=== PATIENT | male | born 1955 | race Caucasian/White ===

== ENCOUNTER → 2016-08-21 | Outpatient (CLI) | payer BC ==
[~2016-08-21] VITALS: Ht 170.2 cm; Wt 139.0 kg
[~2016-08-21] MED LIST: ANT25 PO; CMD5; HYDC25; HYDR25TA4 PO; LISI-461; LISI-725 PO; OMEP10CA2; OMEP20CA9 PO; POTA10CA28 PO; WARF2.5T8 PO; WARF5TAB7 PO
[2016-08-21 15:02] VITALS: BP 173/104; PULSE 99; Ht 170.2 cm; Wt 139.0 kg
== END | disposition home or self-care (01) ==
LOC: C.NEUR 13:49
PROVIDERS: ATTEND Internal Medicine Pulmonary Disease
DX: G47.30 Sleep apnea, unspecified (principal); G47.19 Other hypersomnia; I10 Essential (primary) hypertension; E66.01 Morbid (severe) obesity due to excess calories; J34.2 Deviated nasal septum

== ENCOUNTER → 2016-09-10 | Outpatient (CLI) | payer BC ==
[2016-09-10 18:29] LABS: INR 1.9 (0.9-1.1); PROTHROMBIN TIME (PATIENT) 20.6 SECONDS (9.0-12.0)
== END | disposition home or self-care (01) ==
LOC: C.LABSPEC 14:27
PROVIDERS: ATTEND Internal Medicine
DX: Z51.81 Encounter for therapeutic drug level monitoring (principal); Z79.01 Long term (current) use of anticoagulants; Z86.718 Personal history of other venous thrombosis and embolism

== ENCOUNTER → 2016-09-28 | Outpatient (CLI) | payer BC ==
[2016-09-28 14:03] LABS: INR 2.6 (0.9-1.1); PROTHROMBIN TIME (PATIENT) 28.8 SECONDS (9.0-12.0)
== END | disposition home or self-care (01) ==
LOC: C.LABSPEC 12:29
PROVIDERS: ATTEND Internal Medicine
DX: Z86.718 Personal history of other venous thrombosis and embolism (principal); Z79.01 Long term (current) use of anticoagulants

== ENCOUNTER → 2016-11-05 | Outpatient (CLI) | payer BC ==
[2016-11-05 13:39] LABS: INR 3.3 (0.9-1.1); PROTHROMBIN TIME (PATIENT) 36.7 SECONDS (9.0-12.0)
== END | disposition home or self-care (01) ==
LOC: C.LABSPEC 12:39
PROVIDERS: ATTEND Internal Medicine
DX: Z86.718 Personal history of other venous thrombosis and embolism (principal); Z79.01 Long term (current) use of anticoagulants

== ENCOUNTER → 2016-11-23 | Outpatient (CLI) | payer BC ==
[2016-11-23 13:01] LABS: INR 2.3 (0.9-1.1); PROTHROMBIN TIME (PATIENT) 25.9 SECONDS (9.0-12.0)
== END | disposition home or self-care (01) ==
LOC: C.LABSPEC 12:06
PROVIDERS: ATTEND Internal Medicine
DX: Z86.718 Personal history of other venous thrombosis and embolism (principal); Z79.01 Long term (current) use of anticoagulants

== ENCOUNTER → 2016-12-04 | Outpatient (CLI) | payer BC ==
[2016-12-04 12:34] LABS: BASO % 0.5 %; BASO ABS # 0.03 K/uL (0-0.2); COMPLETE YES; EOS % 1.3 %; HEMATOCRIT 48.6 % (42-52); IG% 0.2 %; LYMPH % 39.1 %; LYMPH ABS # 2.15 K/uL (1.2-3.4); MEAN CELL VOLUME 85.7 fL (80-100); MEAN CORPUSCULAR HEMOGLOBIN 30.5 pg (25-34); MEAN CORPUSCULAR HGB CONC 35.6 g/dl (32-36); MEAN PLATELET VOLUME 11.5 fL (7.4-10.4); MONO % 13.1 %; NEUT % 45.8 %; PLATELET COUNT 189 K/uL (130-400); RED BLOOD COUNT 5.67 M/uL (4.7-6.1)
[2016-12-04 13:03] LABS: ESTIMATED AVERAGE GLUCOSE 120 mg/dl; HA1C FLAG Normal (Normal)
[2016-12-04 13:06] LABS: ALT/SGPT 43 U/L (12-78); AST/SGOT 25 U/L (15-37); BLOOD UREA NITROGEN 12 mg/dl (7-18); BUN/CREATININE RATIO 13.4 (10-20); CARBON DIOXIDE 29 mmol/L (21-32); CHLORIDE 106 mmol/L (98-107); CREATININE 0.91 mg/dl (0.60-1.40); GLUCOSE 106 mg/dl (70-99); POTASSIUM 3.7 mmol/L (3.5-5.1); SODIUM 140 mmol/L (136-145); TRIGLYCERIDES 208 mg/dl (0-150); VERY LOW DENSITY LIPOPROT CALC 42 mg/dl
[2016-12-04 13:14] LABS: ALB/GLOB RATIO 1.2 (0.9-2); ALKALINE PHOSPHATASE 49 U/L (45-117); CHOLESTEROL 180 mg/dl (0-200); CHOLESTEROL/HDL RATIO 4.4; HDL CHOLESTEROL 41 mg/dl; THYROID STIMULATING HORMONE 0.899 uIu/ml (0.300-4.500)
== END | disposition home or self-care (01) ==
LOC: C.LABSPEC 12:10
PROVIDERS: ATTEND Internal Medicine
DX: Z00.00 Encounter for general adult medical examination without abnormal findings (principal); M25.50 Pain in unspecified joint; M79.1 Myalgia; I10 Essential (primary) hypertension; E78.5 Hyperlipidemia, unspecified; R53.83 Other fatigue; R73.9 Hyperglycemia, unspecified; Z80.42 Family history of malignant neoplasm of prostate

== ENCOUNTER → 2016-12-28 | Outpatient (CLI) | payer BC ==
[2016-12-28 13:15] LABS: INR 2.6 (0.9-1.1); PROTHROMBIN TIME (PATIENT) 29.5 SECONDS (9.0-12.0)
== END | disposition home or self-care (01) ==
LOC: C.LABSPEC 12:12
PROVIDERS: ATTEND Internal Medicine
DX: Z86.718 Personal history of other venous thrombosis and embolism (principal); Z79.01 Long term (current) use of anticoagulants

== ENCOUNTER → 2017-02-05 | Day surgery (SDC) | payer BC ==
[2017-01-28 15:19] VITALS: BMI 45.0
[~2017-02-05] VITALS: Ht 170.2 cm; Wt 131.8 kg
[~2017-02-05] MED LIST changes: -ANT25 PO; -CMD5; -HYDC25; -LISI-461; -OMEP10CA2
[2017-02-05 13:43] VITALS: Ht 170.2 cm; Wt 131.8 kg
--- NOTE | 2017-02-05 14:13 | Endo History and Physical ---
History & Physical Date of Service: Feb 05, 2017. Chief Complaint: Screening Referring Physician: Dr. Roma Hummel History of Present Illness For colonoscopy Past Surgical History Hx Cardiac Surgery: No Hx Internal Defibrillator: No Hx Pacemaker: No Hx Abdominal Surgery: No Hx of Implantable Prosthesis: No Hx Post-Op Nausea and Vomiting: No Hx Cancer Surgery: No Hx Thoracic Surgery: No Hx Orthopedic: No Hx Urinary Tract Surgery: No Family History None Social History Smoking Status: Never Smoker Hx Substance Use: No Hx Alcohol Use: No Allergies Coded Allergies: No Known Allergies (Unverified , 02/05/17) Current Medications Reported Home Medications Medications Dose Route/Sig Max Daily Dose Days Date Category Jantoven (Warfarin Sodium) 5 Mg Tab 5 Mg PO 5XWK 01/28/17 Reported Jantoven (Warfarin Sodium) 2.5 Mg Tab 2.5 Mg PO 2XWK 01/28/17 Reported Micro-K Ext Rel (Potassium Chloride) 10 Meq Capcr 20 Meq PO QPM 01/28/17 Reported Zestril (Lisinopril) 20 Mg Tab 20 Mg PO QAM 01/28/17 Reported Hctz (Hydrochlorothiazide) 25 Mg Tab 25 Mg PO QAM 01/28/17 Reported Prilosec (Omeprazole) 20 Mg Cap 20 Mg PO QAM 01/28/17 Reported Vital Signs Weight (Kilograms): 131.82 Height (Feet): 5 Height (Inches): 7 Date Time Temp Pulse Resp B/P (MAP) Pulse Ox O2 Delivery O2 Flow Rate FiO2 02/05/17 13:59 36.9 96 20 188/93 (124) 95 Room Air Physical Exam General Appearance: + obese Respiratory/Chest: Respiratory effort: no dyspnea Cardiovascular: Heart Auscultation: RRR Abdomen: Inspection & Palpation: soft Assessment and Plan For screening colonoscopy
--- NOTE | 2017-02-05 14:45 | Discharge Instructions ---
Endoscopy Patient Instructions Date / Procedure(s) Performed Feb 05, 2017. Colonoscopy Allergy Information Coded Allergies: No Known Allergies (Unverified , 02/05/17) Discharge Date / Findings Feb 05, 2017. Hemorrhoids Medication Instructions Stopped Medication(s): COUMADIN STOPPED 01/30/17 Restart Stopped Medication(s): resume meds Reported Home Medications Medications Dose Route/Sig Max Daily Dose Days Date Category Jantoven (Warfarin Sodium) 5 Mg Tab 5 Mg PO 5XWK 01/28/17 Reported Jantoven (Warfarin Sodium) 2.5 Mg Tab 2.5 Mg PO 2XWK 01/28/17 Reported Micro-K Ext Rel (Potassium Chloride) 10 Meq Capcr 20 Meq PO QPM 01/28/17 Reported Zestril (Lisinopril) 20 Mg Tab 20 Mg PO QAM 01/28/17 Reported Hctz (Hydrochlorothiazide) 25 Mg Tab 25 Mg PO QAM 01/28/17 Reported Prilosec (Omeprazole) 20 Mg Cap 20 Mg PO QAM 01/28/17 Reported Provider Instructions Activity Restrictions - No exercising or heavy lifting for 24 hours. - Do not drink alcohol the day of the procedure. - Do not drive a car or operate machinery until the day after the procedure. - Do not make any important decisions or sign important papers in 24 hours after the procedure. Following Day: - Return to full activity which may include returning to work/school. Diet Start your diet with liquids and light foods (jello, soup, juice, toast). Then eat your usual diet if not nauseated. Treatment For Common After Affects For mild abdominal pain, bloating, or excessive gas: - Rest - Eat lightly - Lie on right side Follow-Up Information Follow-up with CRISELDA as scheduled Anesthesia Information What You Should Know You have had a procedure that required some medicine to reduce anxiety and discomfort. This treatment is called moderate sedation. After receiving the treatment, you may be sleepy, but you will be able to breathe on your own. The effects of the treatment may last for several hours. Follow these instructions along with Activity/Diet recommendations noted above: * Do NOT do anything where dizziness or clumsiness would be dangerous. * Rest quietly at home today, then you can be up and about tomorrow. * Have a responsible person stay with you the rest of today. * You may have had an I.V. today. If so, you may take the dressing off later today. Recommendations Call your doctor if: * Trouble breathing * Continuous vomiting for more than 24 hours * Temperature above 101 degrees * Severe abdominal pain or bloating * Pain not relieved by pain medicine ordered * There is increased drainage or redness from any incision * A large amount of rectal bleeding greater than 2-3 tablespoons. (If you had a polyp/s removed or have hemorrhoids, a small amount of blood - from the rectum is to be expected.) * You have any unanswered questions or concerns. IN THE EVENT OF A SERIOUS EMERGENCY, GO TO THE NEAREST EMERGENCY ROOM Your discharge instructions were prepared by provider Joss Salinas. Patient Instructions Signature Page Mingo Smith Patient (or Guardian) Signature/Date: I have read and understand the instructions given to me by my caregivers. Caregiver/RN/Doctor Signature/Date: The above-named patient and/or guardian has received patient instructions on this date. + Original Patient Signature Page (only) stays with chart. Please make copy for patient.
--- NOTE | 2017-02-05 15:07 | GI REPORT ---
Procedure Date: 02/05/2017 2:05 PM Procedure: Colonoscopy Indications: Screening for colorectal malignant neoplasm Medicines: Fentanyl 100 micrograms IV, Propofol total dose 300 mg IV, Lidocaine 40 mg IV Complications: No immediate complications. Estimated Blood Loss: Estimated blood loss: none. Procedure: Pre-Anesthesia Assessment: - Prior to the procedure, a History and Physical was performed, and patient medications, allergies and sensitivities were reviewed. The patient's tolerance of previous anesthesia was reviewed. - The risks and benefits of the procedure and the sedation options and risks were discussed with the patient. All questions were answered and informed consent was obtained. After I obtained informed consent, the scope was passed under direct vision. Throughout the procedure, the patient's blood pressure, pulse, and oxygen saturations were monitored continuously. The scope was introduced through the anus and advanced to the cecum, identified by appendiceal orifice and ileocecal valve. The colonoscopy was performed without difficulty. The patient tolerated the procedure well. The quality of the bowel preparation was good. Findings: Non-bleeding internal hemorrhoids were found during endoscopy. The hemorrhoids were mild. Impression: - Non-bleeding internal hemorrhoids. - No specimens collected. Recommendation: - Discharge patient to home (ambulatory). - Continue present medications. - Repeat colonoscopy in 10 years for screening purposes. - Return to primary care physician PRN. Joss Salinas M.D. Joss Salinas MD 02/05/2017 3:07:14 PM This report has been signed electronically. Note Initiated On: 02/05/2017 2:05 PM I attest to the content of the Intraoperative Record and orders documented therein, exceptions below
--- NOTE | 2017-02-05 15:19 | Anesthesiology Progress Note ---
Anesthesia Post Op Note Date & Time Feb 05, 2017 at 15:18 Vital Signs Pain Intensity: 0 Vital Signs Past 12 Hours Date Time Temp Pulse Resp B/P (MAP) Pulse Ox O2 Delivery O2 Flow Rate FiO2 02/05/17 15:09 77 24 129/79 (96) 93 Room Air 02/05/17 14:54 84 24 125/90 (102) 94 Room Air 02/05/17 13:59 36.9 96 20 188/93 (124) 95 Room Air Notes Mental Status: alert / awake / arousable, participated in evaluation Pt Amnestic to Procedure: Yes Nausea / Vomiting: adequately controlled Pain: adequately controlled Airway Patency, RR, SpO2: stable & adequate BP & HR: stable & adequate Hydration State: stable & adequate Anesthetic Complications: no major complications apparent
[2017-02-05 15:24] VITALS: BP 156/93; PULSE 81; O2SAT 93
== END | disposition home or self-care (01) ==
LOC: C.GI 13:36
PROVIDERS: ATTEND Internal Medicine Gastroenterology
DX: Z12.11 Encounter for screening for malignant neoplasm of colon (principal); K64.8 Other hemorrhoids

== ENCOUNTER → 2017-02-18 | Outpatient (CLI) | payer BC ==
[2017-02-18 15:21] LABS: INR 1.8 (0.9-1.1); PROTHROMBIN TIME (PATIENT) 19.5 SECONDS (9.0-12.0)
== END | disposition home or self-care (01) ==
LOC: C.LABSPEC 13:45
PROVIDERS: ATTEND Internal Medicine
DX: Z51.81 Encounter for therapeutic drug level monitoring (principal); Z79.01 Long term (current) use of anticoagulants; Z86.718 Personal history of other venous thrombosis and embolism

== ENCOUNTER → 2017-02-19 | Outpatient (CLI) | payer BC ==
[~2017-02-19] VITALS: Ht 170.2 cm; Wt 98.0 kg
[2017-02-19 14:16] VITALS: BP 156/91; PULSE 98; Ht 170.2 cm; Wt 98.0 kg
== END | disposition home or self-care (01) ==
LOC: C.NEUR 13:03
PROVIDERS: ATTEND Internal Medicine Pulmonary Disease
DX: G47.30 Sleep apnea, unspecified (principal); E66.01 Morbid (severe) obesity due to excess calories; Z68.33 Body mass index [BMI] 33.0-33.9, adult

== ENCOUNTER → 2017-03-09 | Outpatient (CLI) | payer BC ==
[2017-03-09 15:42] LABS: INR 2.8 (0.9-1.1); PROTHROMBIN TIME (PATIENT) 31.1 SECONDS (9.0-12.0)
== END | disposition home or self-care (01) ==
LOC: C.LABSPEC 15:02
PROVIDERS: ATTEND Internal Medicine
DX: Z86.718 Personal history of other venous thrombosis and embolism (principal); Z79.01 Long term (current) use of anticoagulants

== ENCOUNTER → 2017-04-13 | Outpatient (CLI) | payer BC ==
[2017-04-13 18:27] LABS: INR 2.5 (0.9-1.1); PROTHROMBIN TIME (PATIENT) 27.3 SECONDS (9.0-12.0)
== END | disposition home or self-care (01) ==
LOC: C.LABSPEC 12:02
PROVIDERS: ATTEND Internal Medicine
DX: Z86.718 Personal history of other venous thrombosis and embolism (principal); Z79.01 Long term (current) use of anticoagulants

== ENCOUNTER → 2017-05-21 | Outpatient (CLI) | payer BC ==
[2017-05-21 15:34] LABS: INR 2.2 (0.9-1.1); PROTHROMBIN TIME (PATIENT) 24.2 SECONDS (9.0-12.0)
== END | disposition home or self-care (01) ==
LOC: C.LABSPEC 14:53
PROVIDERS: ATTEND Internal Medicine
DX: I26.99 Other pulmonary embolism without acute cor pulmonale (principal); I82.409 Acute embolism and thrombosis of unspecified deep veins of unspecified lower extremity; Z51.81 Encounter for therapeutic drug level monitoring; Z79.01 Long term (current) use of anticoagulants

== ENCOUNTER → 2017-06-04 | Outpatient (CLI) | payer BC ==
[2017-06-04 13:50] LABS: BLOOD UREA NITROGEN 16 mg/dl (7-18); BUN/CREATININE RATIO 18.1 (10-20); CALCIUM 8.8 mg/dl (8.5-10.1); CARBON DIOXIDE 28 mmol/L (21-32); CHLORIDE 105 mmol/L (98-107); CHOLESTEROL 166 mg/dl (0-200); CREATININE 0.86 mg/dl (0.60-1.40); GLUCOSE 97 mg/dl (70-99); POTASSIUM 3.7 mmol/L (3.5-5.1); SODIUM 140 mmol/L (136-145); TRIGLYCERIDES 164 mg/dl (0-150); VERY LOW DENSITY LIPOPROT CALC 33 mg/dl
[2017-06-04 13:53] LABS: CHOLESTEROL/HDL RATIO 4.5; HDL CHOLESTEROL 37 mg/dl
[2017-06-04 13:55] LABS: ESTIMATED AVERAGE GLUCOSE 111 mg/dl; HA1C FLAG Normal (Normal)
== END | disposition home or self-care (01) ==
LOC: C.LABSPEC 12:21
PROVIDERS: ATTEND Internal Medicine
DX: R73.9 Hyperglycemia, unspecified (principal); I10 Essential (primary) hypertension; E78.5 Hyperlipidemia, unspecified

== ENCOUNTER → 2017-06-25 | Outpatient (CLI) | payer BC ==
[2017-06-25 16:17] LABS: INR 3.1 (0.9-1.1); PROTHROMBIN TIME (PATIENT) 34.8 SECONDS (9.0-12.0)
== END | disposition home or self-care (01) ==
LOC: C.LABSPEC 15:38
PROVIDERS: ATTEND Internal Medicine
DX: Z86.718 Personal history of other venous thrombosis and embolism (principal); Z79.01 Long term (current) use of anticoagulants

== ENCOUNTER → 2017-07-14 | Outpatient (CLI) | payer BC ==
[2017-07-14 12:59] LABS: INR 3.2 (0.9-1.1); PROTHROMBIN TIME (PATIENT) 36.1 SECONDS (9.0-12.0)
== END | disposition home or self-care (01) ==
LOC: C.LABSPEC 12:04
PROVIDERS: ATTEND Internal Medicine
DX: Z86.718 Personal history of other venous thrombosis and embolism (principal); Z79.01 Long term (current) use of anticoagulants

== ENCOUNTER → 2017-08-10 | Outpatient (CLI) | payer BC ==
[~2017-08-10] MED LIST changes: +HYDR-5688 PO
[2017-08-10 17:58] LABS: INR 2.6 (0.9-1.1); PROTHROMBIN TIME (PATIENT) 27.2 SECONDS (9.0-12.0)
== END | disposition home or self-care (01) ==
LOC: C.LABSPEC 17:28
PROVIDERS: ATTEND Internal Medicine
DX: Z51.81 Encounter for therapeutic drug level monitoring (principal); Z79.01 Long term (current) use of anticoagulants; Z86.718 Personal history of other venous thrombosis and embolism

== ENCOUNTER 2017-08-15 07:54 | Emergency (ER) | payer BC ==
[~2017-08-15] VITALS: Ht 170.2 cm; Wt 134.0 kg
[~2017-08-15 07:54] MED LIST changes: -HYDR-5688 PO
[2017-08-15 08:00] VITALS: TEMP 37.3; Ht 170.2 cm; Wt 134.0 kg
--- NOTE | 2017-08-15 08:22 | EMERGENCY ROOM VISIT NOTE ---
History First contact with patient: 07:55 Chief Complaint: KNEEPAIN Stated Complaint: FALL/KNEE PAIN History of Present Illness The patient is a 61 year old male who presents to the Emergency Room with complaints of left knee pain and swelling after a fall. The patient reports that he slipped while walking down stairs and fell down 2 steps. He states that his left knee buckled underneath of him and he heard a snap. He reports significant swelling and numbness in the left knee. He denies any pain in the knee at rest. He has not been able to bear weight on the knee. The patient takes Coumadin. He denies any other injuries. He denies hitting his head or losing consciousness. Review of Systems A 6 point review of systems was reviewed with the patient with pertinent positives and negatives as per history of present illness. All else were negative. Social History Smoking Status: Never Smoker Alcohol Use: none Drug Use: none Marital Status: Occupation Status: employed Current/Historical Medications Scheduled Hydrochlorothiazide (Hctz), 25 MG PO QAM Lisinopril (Zestril), 20 MG PO QAM Omeprazole (Prilosec), 20 MG PO QAM Potassium Chloride (Micro-K Ext Rel), 20 MEQ PO QPM Warfarin Sod (Jantoven), 2.5 MG PO WK Warfarin Sod (Jantoven), 5 MG PO 6XWK Scheduled PRN Hydrocodone/Acetaminophen 5MG/325MG (Temple 5MG/325MG), 1-2 TABLET PO Q4H PRN for Pain Physical Exam Vital Signs Date Time Temp Pulse Resp B/P (MAP) Pulse Ox O2 Delivery O2 Flow Rate FiO2 08/15/17 11:12 124 20 125/90 95 08/15/17 09:34 112 18 162/89 94 08/15/17 08:00 37.3 103 18 175/114 95 Physical Exam VITALS: Vitals are noted on the nurse's note and reviewed by myself. Vital signs stable. GENERAL: This is a 61-year-old male, in no acute distress, nondiaphoretic, well- developed well-nourished. HEART: Regular rate and rhythm without murmurs gallops or rubs. LUNGS: Clear to auscultation bilaterally without wheezes, rales or rhonchi. MUSCULOSKELETAL: There is a large effusion of the left knee with mild ecchymosis. Limited range of motion due to the amount of swelling. There is tenderness and swelling extending into the distal left thigh. Dorsalis pedis pulse 2+. Capillary refill within 2 seconds. NEURO: Patient was alert and oriented to person place and time. Normal sensation in the left lower extremity. Medical Decision & Procedures ER Provider Diagnostic Interpretation: L KNEE 1 OR 2 VIEWS ROUTINE IMPRESSION: 1. Considerable prefemoral and prepatellar soft tissue edema. 2. Quadriceps tendon is not well identified raising the possibility of disruption 3. Small ossific fragment of the suprapatellar bursa possibly chronic, although a small avulsion from the superior patellar margin is not excluded. 4. Mild degenerative change all major joint compartments. L LOWER EXTREMITY WITHOUT IMPRESSION: 1. Limited study as CT is not the preferred modality for ligamentous/tendinous integrity. 2. Considerable prepatellar and prefemoral soft tissue edematous change 3. 3.5 cm hematoma of the soft tissues superior and anterior to the patella. 4. The quadriceps tendon cannot be confirmed to be intact. The possibility of a partial or complete tear must be considered although this study is not confirmatory. 5. If possible, an MRI of the knee is suggested when possible. Laboratory Results 08/15/17 10:16 Red Blood Count 5.47, Mean Corpuscular Volume 85.9, Mean Corpuscular Hemoglobin 30.7, Mean Corpuscular Hemoglobin Concent 35.7, Mean Platelet Volume 11.0, Neutrophils (%) (Auto) 79.8, Lymphocytes (%) (Auto) 13.5, Monocytes (%) (Auto) 6.0, Eosinophils (%) (Auto) 0.1, Basophils (%) (Auto) 0.2, Neutrophils # (Auto) 9.90, Lymphocytes # (Auto) 1.67, Monocytes # (Auto) 0.74, Eosinophils # (Auto) 0.01, Basophils # (Auto) 0.03 08/15/17 10:16 Test 08/15/17 10:16 White Blood Count 12.40 K/uL (4.8-10.8) Red Blood Count 5.47 M/uL (4.7-6.1) Hemoglobin 16.8 g/dL (14.0-18.0) Hematocrit 47.0 % (42-52) Mean Corpuscular Volume 85.9 fL (80-100) Mean Corpuscular Hemoglobin 30.7 pg (25-34) Mean Corpuscular Hemoglobin Concent 35.7 g/dl (32-36) Platelet Count 179 K/uL (130-400) Mean Platelet Volume 11.0 fL (7.4-10.4) Neutrophils (%) (Auto) 79.8 % Lymphocytes (%) (Auto) 13.5 % Monocytes (%) (Auto) 6.0 % Eosinophils (%) (Auto) 0.1 % Basophils (%) (Auto) 0.2 % Neutrophils # (Auto) 9.90 K/uL (1.4-6.5) Lymphocytes # (Auto) 1.67 K/uL (1.2-3.4) Monocytes # (Auto) 0.74 K/uL (0.11-0.59) Eosinophils # (Auto) 0.01 K/uL (0-0.5) Basophils # (Auto) 0.03 K/uL (0-0.2) RDW Standard Deviation 41.8 fL (36.4-46.3) RDW Coefficient of Variation 13.4 % (11.5-14.5) Immature Granulocyte % (Auto) 0.4 % Immature Granulocyte # (Auto) 0.05 K/uL (0.00-0.02) Prothrombin Time 30.0 SECONDS (9.0-12.0) Prothromb Time International Ratio 2.9 (0.9-1.1) Activated Partial Thromboplast Time 38.3 SECONDS (21.0-31.0) Partial Thromboplastin Ratio 1.5 Anion Gap 8.0 mmol/L (3-11) Est Creatinine Clear Calc Drug Dose 118.9 ml/min Estimated GFR () 108.2 Estimated GFR (Non- 93.4 BUN/Creatinine Ratio 16.3 (10-20) Calcium Level 8.9 mg/dl (8.5-10.1) ED Course The patient was evaluated as above. X-ray of the knee was performed and read by radiology as above. CT of the knee was performed and read by radiology as above. Case was discussed with Dr. Peck of orthopedics. Discharge instructions were reviewed with the patient. The patient verbalized understanding of my assessment and treatment plan and was discharged home in good condition. Medical Decision Differential diagnosis includes patellar fracture, tibial plateau fracture, ligamentous injury, knee dislocation, contusion, sprain, among others. The patient is a 61-year-old male who presents today complaining of left knee pain after a fall. Exam shows a large amount of soft tissue swelling in the prepatellar and pre-femoral region. X-ray was initially obtained and showed findings consistent with a possible quadriceps tendon disruption. CT was performed to evaluate for presence of a hematoma. This did show a hematoma as well as again findings of possible quadriceps tendon rupture. Findings were discussed with the patient. He was placed in an Yousif wrap for compression as well as a knee immobilizer. He was instructed on the use of crutches. He was given a prescription for pain medication in case he needs it. He will follow- up with orthopedics. Orthopedics was consulted and will see the patient in the office this week. Labs were drawn prior to discharge at the request of orthopedics. Multiple questions were answered for the patient. He will follow- up with orthopedics. He verbalized his understanding of my assessment and treatment plan and was discharged home in good condition. [place] Drug Monitoring Program Search Results: patient reviewed within database, no issues identified Medication Reconcilliation Current Medication List: was personally reviewed by me Blood Pressure Screening Patient's blood pressure: Elevated blood pressure Blood pressure disposition: Elevated BP felt to be situational, Referred to PCP Impression Primary Impression: Injury of quadriceps tendon Departure Information Dispostion Home / Self-Care Condition GOOD Prescriptions Hydrocodone/Acetaminophen 5MG/325MG (Temple 5MG/325MG) Tab 1-2 TABLET PO Q4H Y for Pain, #15 TAB For Initial Treatment Prov: Amina Turcios ., ARETHA 08/15/17 Referrals No Doctor, Assigned (PCP) Ovi Peck MD Patient Instructions My [facility] Additional Instructions You have been treated in the Emergency Department for a knee injury. You have been prescribed Temple to be used for pain control. This is a narcotic medication. You cannot drive or consume alcohol while on this medicine. This medicine should only be used for pain that cannot be controlled with over-the- counter pain medicines. For pain control, you can use the following [id number]-jjsxoal medicines (if >12 yo): - Regular strength (325mg/tab) Tylenol (acetaminophen) 2 tabs every 4-6 hours as needed. Do not exceed 12 tablets in a 24 hour period. Avoid taking more than 4 grams (4000 mg) of Tylenol per day. This includes any other sources of acetaminophen you may take on a regular basis. - Regular strength (200 mg/tab) Advil (ibuprofen) 1-2 tabs every 4-6 hours as needed. Do not exceed a dose of 3200 mg per day. If this is a recent injury (<24 hrs), ice can be applied to the area of pain for the first 3 days to help decrease pain and inflammation. Ice massages can be performed by freezing water in a paper cup, peeling back the cup to expose the ice and then massaging over the affected area. Elevate the leg to help reduce swelling. You have been provided the number for an Orthopaedic Surgeon. If you do not receive a call from them Wednesday, call the office to schedule an appointment. Keep the knee brace in place until cleared by Orthopedics. Use the crutches to help with walking, but you do not need to keep all weight off the knee. Return to the Emergency Department if your current symptoms worsen despite treatment course outlined above or if you develop worsening pain, numbness in the foot, or any other new/concerning symptoms.
--- NOTE | 2017-08-15 08:28 | DIAGNOSTIC IMAGING REPORT ---
L KNEE 1 OR 2 VIEWS ROUTINE CLINICAL HISTORY: left knee injury trauma. Pain. COMPARISON: None. DISCUSSION: Mild degenerative change all major joint compartments. Small calcific fragment in the suprapatellar bursa. This is indeterminate in reference to age. No significant joint effusion. Considerable soft tissue edema anterior to the distal femur as well as patella. Integrity of the quadriceps tendon is not confirmed. IMPRESSION: 1. Considerable prefemoral and prepatellar soft tissue edema. 2. Quadriceps tendon is not well identified raising the possibility of disruption 3. Small ossific fragment of the suprapatellar bursa possibly chronic, although a small avulsion from the superior patellar margin is not excluded. 4. Mild degenerative change all major joint compartments. The above report was generated using voice recognition software. It may contain grammatical, syntax or spelling errors. Electronically signed by: Riley Abad M.D. 08/15/2017 8:27 AM Dictated Date/Time: 08/15/2017 8:24 AM
--- NOTE | 2017-08-15 09:28 | DIAGNOSTIC IMAGING REPORT ---
L LOWER EXTREMITY WITHOUT CT DOSE: 627.14 mGy.cm HISTORY: Trauma. Pain. eval for left quadriceps tendon disruption, hematoma TECHNIQUE: Multiaxial CT images of the left lower thigh and knee were performed and reformatted in the sagittal and coronal plane without the use of contrast. A dose lowering technique was utilized adhering to the principles of ALARA. COMPARISON: None. FINDINGS: Suboptimal study for evaluation of tenderness integrity. Considerable prepatellar as well as prefemoral soft tissue edematous change. There is a 3.5 cm hematoma associated with generalized surrounding edematous change. There is no significant joint effusion. There is a small 1 cm curvilinear bone fragment superior to the patella. This potentially represents an avulsion. The infrapatellar ligament is a patient is better intact. The suprapatellar ligament and/or quadriceps tendon is difficult to do define given the extensive soft tissue edema present. Aggregate partial and/or complete tear may be present although an MRI study will be required to confirm this possibility. Mild degenerative change of all major joint compartments of the knee with no additional acute bony abnormality. No significant joint effusion. No major popliteal cyst. IMPRESSION: 1. Limited study as CT is not the preferred modality for ligamentous/tendinous integrity. 2. Considerable prepatellar and prefemoral soft tissue edematous change 3. 3.5 cm hematoma of the soft tissues superior and anterior to the patella. 4. The quadriceps tendon cannot be confirmed to be intact. The possibility of a partial or complete tear must be considered although this study is not confirmatory. 5. If possible, an MRI of the knee is suggested when possible. The above report was generated using voice recognition software. It may contain grammatical, syntax or spelling errors. Electronically signed by: Riley Abad M.D. 08/15/2017 9:27 AM Dictated Date/Time: 08/15/2017 9:21 AM
[2017-08-15 10:29] LABS: BASO % 0.2 %; BASO ABS # 0.03 K/uL (0-0.2); EOS % 0.1 %; EOS ABS # 0.01 K/uL (0-0.5); HEMOGLOBIN 16.8 g/dL (14.0-18.0); IG# 0.05 K/uL (0.00-0.02); LYMPH % 13.5 %; LYMPH ABS # 1.67 K/uL (1.2-3.4); MEAN CELL VOLUME 85.9 fL (80-100); MEAN CORPUSCULAR HEMOGLOBIN 30.7 pg (25-34); MEAN CORPUSCULAR HGB CONC 35.7 g/dl (32-36); MONO ABS # 0.74 K/uL (0.11-0.59); NEUT % 79.8 %; PLATELET COUNT 179 K/uL (130-400); RED CELL DISTRIBUTION WIDTH CV 13.4 % (11.5-14.5); RED CELL DISTRIBUTION WIDTH SD 41.8 fL (36.4-46.3)
[2017-08-15 10:44] LABS: INR 2.9 (0.9-1.1); PTT PATIENT 38.3 SECONDS (21.0-31.0)
[2017-08-15 10:46] LABS: CALCIUM 8.9 mg/dl (8.5-10.1); CREATININE 0.85 mg/dl (0.60-1.40); POTASSIUM 3.9 mmol/L (3.5-5.1)
[2017-08-15] MEDS ORDERED: HYDR-5688 PO (11:02)
[2017-08-15 11:12] VITALS: BP 125/90; PULSE 124; O2SAT 95
== END 2017-08-15 11:13 | disposition home or self-care (01) ==
LOC: EDBD 07:54 → C.EDB 07:55
DX: S76.102A Unspecified injury of left quadriceps muscle, fascia and tendon, initial encounter (principal); S80.02XA Contusion of left knee, initial encounter; W10.9XXA Fall (on) (from) unspecified stairs and steps, initial encounter; Z79.01 Long term (current) use of anticoagulants

== ENCOUNTER 2017-08-19 11:59 | Inpatient (IN) | payer BC ==
[~2017-08-19] VITALS: Ht 170.2 cm; Wt 131.0 kg
[~2017-08-19 11:59] MED LIST changes: +HYDR-5688 PO
[2017-08-19 13:55] VITALS: Ht 170.2 cm; Wt 131.0 kg
[2017-08-19 14:08] VITALS: BP 142/79; PULSE 84; TEMP 36.8; O2SAT 96
[2017-08-19 14:59] VITALS: BP 129/64; PULSE 86; TEMP 36.8; O2SAT 97
[2017-08-19] MEDS ORDERED: D5W AND 1/2NSS 1,000 ML IV SCH (15:29)
[2017-08-19] MEDS ORDERED: MAGNESIUM HYDROXIDE SUSP 30 ML UDC PO PRN (15:30)
[2017-08-19] MEDS ORDERED: ONDANSETRON INJ 2 MG/ML 2 ML VIAL IV PRN (15:30)
[2017-08-19] MEDS ORDERED: ALUMINUM/MAGNESIUM SUSP 30 ML UDC PO PRN (15:30)
[2017-08-19] MEDS ORDERED: ZOLPIDEM TARTRATE 5 MG TAB PO PRN (15:30)
--- NOTE | 2017-08-19 15:49 | History and Physical ---
History & Physical Date Aug 19, 2017. Chief Complaint left knee pain History of Present Illness The patient is a 61 year old male with complaints of left knee pain after a fall on 08.15.17. He had a CT that confirmed a left quadricep tendon tear. He is being admitted for evaluation of his PT/INR in anticipation for surgery on 08.20.17. Past Medical/Surgical History PMH: DVT with bilateral PE's in 2002, chronic coumadin use, sleep apnea with use of a CPAP, Acid reflux, obesity Social hx: Denies tobacco use. Past surgical hx: jaw surgery as a child Allergies Coded Allergies: No Known Allergies (Unverified , 08/15/17) Home Medications Scheduled Hydrochlorothiazide (Hctz), 25 MG PO QAM Lisinopril (Zestril), 20 MG PO QAM Omeprazole (Prilosec), 20 MG PO QAM Potassium Chloride (Micro-K Ext Rel), 20 MEQ PO QPM Warfarin Sod (Jantoven), 2.5 MG PO WK Warfarin Sod (Jantoven), 5 MG PO 6XWK Scheduled PRN Hydrocodone/Acetaminophen 5MG/325MG ([place] 5MG/325MG), 1-2 TABLET PO Q4H PRN for Pain Physical Examination Skin: warm/dry, no rash Eyes: normal inspection ENT: normal ENT inspection Head: normocephalic, atraumatic Neck: supple, no adenopathy, trachea midline Respiratory/Chest: lungs clear, normal breath sounds, no respiratory distress Cardiovascular: regular rate, rhythm, no murmur Abdomen / GI: normal bowel sounds, non tender Extremities: + pertinent finding (left knee: + effusion and swelling. Unable to extend knee actively. Tender to palpation distal quadricep.) Neurologic/Psych: no motor/sensory deficits, alert, oriented x 3 Diagnosis left quadricep tendon tear Hx of PE--chronic coumadin Plan of Treatment Patient admitted today in anticipation for quad tendon repair tomorrow. Consult the patient's PCP for eval of the patient's PT/INR for possible vitamin K. All potential risks, benefits, complications, alternatives, and rehab have been discussed and the patient wishes to proceed. NPO after midnight tonight. Schedule for surgery tomorrow, 08.20.17.
[2017-08-19 16:17] LABS: HEMATOCRIT 36.6 % (42-52); MEAN CELL VOLUME 85.3 fL (80-100); MEAN CORPUSCULAR HEMOGLOBIN 30.3 pg (25-34); MEAN CORPUSCULAR HGB CONC 35.5 g/dl (32-36); MEAN PLATELET VOLUME 10.3 fL (7.4-10.4); PLATELET COUNT 195 K/uL (130-400); RED CELL DISTRIBUTION WIDTH CV 13.6 % (11.5-14.5); RED CELL DISTRIBUTION WIDTH SD 41.4 fL (36.4-46.3); WHITE BLOOD COUNT 10.15 K/uL (4.8-10.8)
[2017-08-19 16:29] LABS: INR 1.3 (0.9-1.1)
[2017-08-19 16:44] LABS: CALCIUM 8.7 mg/dl (8.5-10.1); CREATININE 0.78 mg/dl (0.60-1.40); POTASSIUM 3.5 mmol/L (3.5-5.1)
--- NOTE | 2017-08-19 17:26 | Progress Note ---
Progress Note Date of Service Aug 19, 2017. Progress Note Pt is a 61yo man who is scheduled for a left quadriceps repair with Dr. Simon tomorrow. Pt seen and interviewed. PMH significant for HTN, KEVEN with CPAP, well controlled GERD, obesity and h/o PE/DVT on chronic coumadin. Pt took his last dose of coumadin on 08/16/17 around noon time. Coagulation study still pending. Anesthesia plan was discussed with patient and including options of general anesthesia vs. neuraxial anesthesia. Due to recent coumadin use neuraxial anesthesia was excluded from consent. Pt was, however, consented for peripheral nerve block to help with post op pain control. Risks and benefits were explained, pt agreeable with plan and consent was signed. Pt was also advised to be NPO after midnight except for no more than 15cc of water with meds in the morning.
[2017-08-19] MEDS: DOCUSATE SODIUM 100 MG CAP PO SCH (20:50)
[2017-08-19] MEDS: POTASSIUM CHLORIDE 10 MEQ TABCR PO SCH (20:51)
[2017-08-19] MEDS ORDERED: PHYTONADIONE 5 MG TAB PO STA (20:59)
--- NOTE | 2017-08-19 20:59 | Medical Consult ---
Consultation Date of Consultation: Aug 19, 2017. Attending Physician: Dave Simon D.O. 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 He came to the ED and initial imaging study showed no fractures but possible tendon tears. He followed up with orthopedic as an outpatient who admitted him today for an elective orthopedic procedure tomorrow at tendon repair. He has been off Coumadin since Wednesday but has not checked his INR.. Other than swelling and pain in his left knee surgery he has no other complaint. Social History Smoking Status: Never Smoker Drug Use: none Marital Status: Occupation Status: employed Allergies Coded Allergies: No Known Allergies (Unverified , 08/15/17) Current Inpatient Medications Current Inpatient Medications Medications (Trade) Dose Ordered Sig/Jose F Route Start Time Stop Time Status Last Admin Dose Admin Oxycodone/ Acetaminophen (Percocet 5-325mg Tab) `1-2 TABS FOR PAIN `1 TAB... Q4H PRN PO 08/19/17 15:30 09/02/17 15:29 Diphenhydramine HCl (Benadryl Cap) 25 mg Q8 PRN PO 08/19/17 15:30 09/18/17 15:29 Zolpidem Tartrate (Ambien Tab) 5 mg HSZ PRN PO 08/19/17 15:30 09/18/17 15:29 Ondansetron HCl (Zofran Inj) 4 mg Q6H PRN IV 08/19/17 15:30 09/18/17 15:29 Al Hydroxide/Mg Hydroxide (Maalox Susp) 30 ml Q6H PRN PO 08/19/17 15:30 09/18/17 15:29 Docusate Sodium (coLACE CAP) 100 mg BID PO 08/19/17 21:00 09/18/17 20:59 Magnesium Hydroxide (Milk Of Magnesia Susp) 30 ml Q6H PRN PO 08/19/17 15:30 09/18/17 15:29 Dextrose/Sodium Chloride 1,000 ml @ 75 mls/hr [id number] IV 08/19/17 15:29 09/18/17 15:28 Hydrochlorothiazide (Hydrochlorothiazide Tab) 25 mg QAM PO 08/20/17 09:00 09/19/17 08:59 Lisinopril (Zestril Tab) 20 mg QAM PO 08/20/17 09:00 09/19/17 08:59 Potassium Chloride (Klor-Con M10) 20 meq QPM PO 08/19/17 21:00 09/18/17 20:59 Pantoprazole Sodium (Protonix Tab) 40 mg QAM PO 08/20/17 09:00 09/19/17 08:59 Cefazolin Sodium 15 ml @ 3 mls/min PREOP IV 08/20/17 06:00 08/20/17 18:00 Review of Systems Constitutional: No fever, No chills, No sweats, No weight loss, No weakness, No fatigue, No problem reported Eyes: No worsening of vision, No eye pain, No redness, No discharge, No diplopia, No problem reported ENT: No hearing loss, No unusual epistaxis, No nasal symptoms, No sore throat, No tinnitus, No dental problems, No trouble swallowing, No problem reported Respiratory: No cough, No sputum, No wheezing, No shortness of breath, No dyspnea on exertion, No dyspnea at rest, No hemoptysis, No problem reported Cardiovascular: No chest pain, No orthopnea, No PND, No edema, No claudication , No palpitations, No problem reported Abdomen: No pain, No nausea, No vomiting, No diarrhea, No constipation, No GI bleeding, No problem reported Musculoskeletal: + joint pain, + swelling Genitourinary - Male: No hematuria, No dysuria, No urinary frequency, No urinary urgency, No urinary hesitancy, No urinary retention, No urinary incontinence, No penile discharge, No lesions, No impotence, No problem reported Neurologic: No memory loss, No paralysis, No weakness, No numbness/tingling, No vertigo, No balance problems, No problem reported Psychiatric: No depression symptoms, No anhedonism, No anxiety, No insomnia, No substance abuse, No problem reported Endocrine: No fatigue, No excessive thirst, No excessive urination, No problem reported Hematologic / Lymphatic: No abnormal bleeding/bruising, No clotting problems, No swollen lymph nodes, No night sweats, No problem reported Integumentary: No rash, No itch, No new/changing skin lesions, No color change , No bleeding, No problem reported Allergic / Immunologic: No environmental allergies, No seasonal allergies, No pet sensitivities, No food allergies, No hives, No frequent infections, No poor healing, No prolonged convalescence, No problem reported Physical Exam Date Time Temp Pulse Resp B/P (MAP) Pulse Ox O2 Delivery O2 Flow Rate FiO2 08/19/17 15:30 Room Air 08/19/17 14:59 36.8 86 16 129/64 (85) 97 Room Air 08/19/17 14:08 36.8 84 16 142/79 (100) 96 Room Air 08/19/17 13:55 Room Air General Appearance: no apparent distress, + obese Head: normocephalic, atraumatic Eyes: normal inspection, EOMI ENT: normal ENT inspection, hearing grossly normal Neck: supple Respiratory/Chest: chest non-tender, lungs clear, normal breath sounds, no respiratory distress, no accessory muscle use Cardiovascular: regular rate, rhythm, no edema, no gallop, no JVD, no murmur Abdomen/GI: normal bowel sounds, non tender, soft, no organomegaly, no pulsatile mass Back: normal inspection Extremities/Musculoskelatal: + pertinent finding (left knee swelling and bruise ) Neurologic/Psych: elevator erector helper II-XII nml as tested, no motor/sensory deficits, alert, normal mood/affect, normal reflexes, oriented x 3 Skin: normal color, warm/dry, no rash Laboratory Results Last 24 Hours Test 08/19/17 16:07 08/19/17 17:20 08/19/17 20:50 White Blood Count 10.15 K/uL Red Blood Count 4.29 M/uL Hemoglobin 13.0 g/dL Hematocrit 36.6 % Mean Corpuscular Volume 85.3 fL Mean Corpuscular Hemoglobin 30.3 pg Mean Corpuscular Hemoglobin Concent 35.5 g/dl RDW Standard Deviation 41.4 fL RDW Coefficient of Variation 13.6 % Platelet Count 195 K/uL Mean Platelet Volume 10.3 fL Prothrombin Time 13.7 SECONDS Prothromb Time International Ratio 1.3 Sodium Level 134 mmol/L Potassium Level 3.5 mmol/L Chloride Level 100 mmol/L Carbon Dioxide Level 28 mmol/L Anion Gap 6.0 mmol/L Blood Urea Nitrogen 15 mg/dl Creatinine 0.78 mg/dl Est Creatinine Clear Calc Drug Dose 127.9 ml/min Estimated GFR () 112.1 Estimated GFR (Non- 96.7 BUN/Creatinine Ratio 19.1 Random Glucose 96 mg/dl Calcium Level 8.7 mg/dl Urine Color YELLOW Urine Appearance CLEAR Urine pH 7.0 Urine Specific [place] 1.017 Urine Protein NEG Urine Glucose (UA) NEG Urine Ketones NEG Urine Occult Blood NEG Urine Nitrite NEG Urine Bilirubin NEG Urine Urobilinogen NEG Urine Leukocyte Esterase NEG Assessment & Plan 61-year-old man with past medical history of sleep apnea, obesity, 14 years ago 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 going for quad tendon repair tomorrow. Assessment Left quad tendon tear Status post mechanical fall History of PE/DVT on Coumadin Obesity/sleep apnea Plan Ordered stat INR, if elevated will give vitamin K dose Ordered INR in a.m. Labs in a.m. Patient is medically cleared for the surgery as clearly benefits outweighs the risk We'll leave it up to orthopedic team to initiate Coumadin when possible, could be bridged at least with DVT prophylaxis dose of Lovenox if okay with orthopedic team
[2017-08-19 23:07] VITALS: BP 117/68; PULSE 76; TEMP 36.8; O2SAT 95
[2017-08-19 23:15] LABS: INR 1.3 (0.9-1.1)
[2017-08-20] VITALS (8 sets, daily range): BP systolic 125–160; BP diastolic 69–83; PULSE 75–110; TEMP 36.3–37.1; O2SAT 93–96
[2017-08-20] MEDS ORDERED: CEFAZOLIN 3000MG IV PUSH 15 ML IV SCH (06:00)
[2017-08-20] MEDS ORDERED: CEFAZOLIN IV 3,000 MG in DEXTROSE 5% 50ML 50 ML IV SCH (06:00)
[2017-08-20] MEDS ORDERED: BUPIVACAINE 0.5 % 5 MG/1 ML PF 10ML VIAL ONE (06:42)
[2017-08-20 07:43] LABS: BASO % 0.2 %; BASO ABS # 0.02 K/uL (0-0.2); EOS % 1.1 %; HEMATOCRIT 35.3 % (42-52); HEMOGLOBIN 12.2 g/dL (14.0-18.0); IG# 0.05 K/uL (0.00-0.02); LYMPH ABS # 2.43 K/uL (1.2-3.4); MEAN CELL VOLUME 86.5 fL (80-100); MEAN CORPUSCULAR HEMOGLOBIN 29.9 pg (25-34); MEAN CORPUSCULAR HGB CONC 34.6 g/dl (32-36); MEAN PLATELET VOLUME 10.7 fL (7.4-10.4); MONO % 13.3 %; MONO ABS # 1.24 K/uL (0.11-0.59); NEUT % 58.9 %; NEUT ABS # 5.49 K/uL (1.4-6.5); PLATELET COUNT 207 K/uL (130-400); RED CELL DISTRIBUTION WIDTH CV 13.7 % (11.5-14.5); RED CELL DISTRIBUTION WIDTH SD 43.4 fL (36.4-46.3); WHITE BLOOD COUNT 9.33 K/uL (4.8-10.8)
[2017-08-20 07:52] LABS: INR 1.2 (0.9-1.1)
[2017-08-20] MEDS ORDERED: PROPOFOL IV EMULSION 10 MG/ML 20 ML VIAL IV ONE (09:15)
[2017-08-20] MEDS ORDERED: DEXAMETHASONE SOD INJ 4 MG/ML VIAL ONE (09:15)
[2017-08-20] MEDS ORDERED: LIDOCAINE HCL 2% 2 ML VIAL (20MG/ML) ONE (09:15)
[2017-08-20] MEDS ORDERED: ONDANSETRON INJ 2 MG/ML 2 ML VIAL ONE (09:15)
[2017-08-20] MEDS ORDERED: MIDAZOLAM HCL 1 MG/ML 2ML VIAL ONE (09:16)
[2017-08-20] MEDS ORDERED: FENTANYL CITRATE INJ 50 MCG/1 ML 2 ML VIAL ONE ×3 (09:16→12:33)
--- NOTE | 2017-08-20 09:28 | History & Physical Bridge Note ---
H&P Re-Evaluation Bridge Note: I have examined the patient, reviewed the History & Physical and in the interval since the performance of the History & Physical I have noted the following changes of clinical significance: No changes noted
[2017-08-20 09:48] LABS: CALCIUM 8.3 mg/dl (8.5-10.1); CREATININE 0.87 mg/dl (0.60-1.40); POTASSIUM 3.5 mmol/L (3.5-5.1)
[2017-08-20 09:50] LABS: TOTAL PROTEIN 6.5 gm/dl (6.4-8.2)
[2017-08-20] MEDS ORDERED: ATROPINE SULFATE 0.1 MG/ML 5ML SYR IV PRN (10:00)
[2017-08-20] MEDS ORDERED: EpHEDrine SULFATE INJ 50 MG/ML AMP IV PRN (10:00)
[2017-08-20] MEDS ORDERED: ONDANSETRON INJ 2 MG/ML 2 ML VIAL IV PRN ×2 (10:00→13:00)
[2017-08-20] MEDS ORDERED: BACITRACIN 50000 UNIT VIAL ONE (10:25)
--- NOTE | 2017-08-20 12:29 | [facility] Post Operative Brief Note ---
Immediate Operative Summary Operative Date Aug 20, 2017. Pre-Operative Diagnosis Left quadriceps tendon tear Post-Operative Diagnosis Left quadriceps tendon tear Procedure(s) Performed Left Knee Quadriceps Tendon Repair Surgeon Dr. Karey Simon [employer] Surgeon(s) Wilder Redd PA-C Estimated Blood Loss 30 ml Findings See Dict Specimens none per surgeon Drains HV x 2 Anesthesia GETT and Femoral nerve block Complication(s) None Disposition Recovery Room / PACU
[2017-08-20] MEDS ORDERED: MoRPHine SULFATE 2 MG/ML CARP ONE (12:31)
--- NOTE | 2017-08-20 12:42 | DIAGNOSTIC IMAGING REPORT ---
L KNEE 1 OR 2 VIEWS HISTORY: 61 years-old Male LT KNEE TENDON REPAIR status post left knee tendon repair COMPARISON: Left knee radiographs 08/15/2017, left knee CT 08/15/2017 TECHNIQUE: 2 spot fluoroscopic views of the left knee were obtained utilizing 32.5 seconds of fluoroscopy time FINDINGS: First image demonstrates multiple metallic tools overlying the tibiofemoral joint. The patella appears to be somewhat low-lying on the lateral view and there is persistent soft tissue swelling within the suprapatellar tissues. The AP image demonstrates satisfactory alignment with mild degenerative changes about the knee. IMPRESSION: Fluoroscopic assistance as above. Please see operative report for further details. The above report was generated using voice recognition software. It may contain grammatical, syntax or spelling errors. Electronically signed by: Tez López M.D. 08/20/2017 12:40 PM Dictated Date/Time: 08/20/2017 12:37 PM
[2017-08-20] MEDS ORDERED: NO NSAIDS SCH (13:00)
[2017-08-20] MEDS ORDERED: BISACODYL 10 MG SUPP PR PRN (13:00)
[2017-08-20] MEDS ORDERED: MAGNESIUM HYDROXIDE SUSP 30 ML UDC PO PRN (13:00)
[2017-08-20] MEDS ORDERED: ZOLPIDEM TARTRATE 5 MG TAB PO PRN (13:00)
[2017-08-20] MEDS ORDERED: SOD PHOSPHATE/SOD BIPHOSPHATE ENEMA 132 ML BTL PR PRN (13:00)
[2017-08-20] MEDS ORDERED: MoRPHine SULFATE 2 MG/ML CARP IV PRN (13:00)
[2017-08-20] MEDS: FENTANYL CITRATE INJ 50 MCG/1 ML 2 ML VIAL IV PRN ×4 (13:01→13:16)
--- NOTE | 2017-08-20 13:04 | Discharge Instructions ---
Discharge Instructions Date of Service Aug 20, 2017. Admission Reason for Admission: Left Knee Quadriceps Tendon Tear Discharge Discharge Diagnosis / Problem: left quadriceps tendon tear Discharge Goals Goal(s): Decrease discomfort, Improve function Activity Recommendations Activity Limitations: per Instructions/Follow-up section Weightbearing Status: Left non-weightbearing . Instructions / Follow-Up Instructions / Follow-Up ACTIVITY RECOMMENDATIONS: * You are to wear the brace at all times. * No range of motion of the left knee. * You are to be nonweightbearing on the left lower extremity at all times. * May drive car if: a. Standard transmission - right or left leg surgery - as soon as walking without crutches. b. Automatic transmission - left leg surgery - immediately right leg - as soon as walking without crutches. SPECIAL CARE INSTRUCTIONS: * Silverlon- This is a large adhesive bandage that contains silver ions. This helps your incision heal by fighting off bacteria and protecting it from the outside environment. You are permitted to shower with this dressing. This will remain on your incision for 7 days and then should be removed. Some visible blood or drainage through the dressing window is normal. If there is significant drainage or leaking noted before the 7 days notify your doctor's office immediately. Once removed, keep incision clean and dry. If there is any drainage or redness noted, please call your surgeon. * Change dressing before leaving hospital. * Apply ice to knee for 72 hours after surgery. * Call office at if there are any problems such as excessive wound drainage or increased temperature above 100 degrees F. FOLLOW UP VISIT: If appointment is not already scheduled: Please call [facility] to make a follow-up appointment for 10-14 days after your surgery at . Current Hospital Diet Patient's current hospital diet: Regular Diet Discharge Diet Recommended Diet: Regular Diet Procedures Procedures Performed: Left Knee Quadriceps Tendon Repair Pending Studies Studies pending at discharge: no Laboratory Results Hemoglobin A1c Test 06/04/17 10:00 Range/Units Estimated Average Glucose 111 mg/dl Hemoglobin A1c 5.5 4.5-5.6 % Lipid Panel Test 06/04/17 10:00 Range/Units Triglycerides Level 164 H 0-150 mg/dl Cholesterol Level 166 0-200 mg/dl HDL Cholesterol 37 mg/dl LDL Cholesterol Direct 104 mg/dl Cholesterol/HDL Ratio 4.5 LDL Cholesterol, Calculated mg/dl Medical Emergencies . Who to Call and When: Medical Emergencies: If at any time you feel your situation is an emergency, please call 911 immediately. . Non-Emergent Contact Non-Emergency issues call your: Surgeon Call Non-Emergent contact if: temperature is above 101, your pain is not controlled, your pain is worsening, wound has increased drainage, wound has increased redness . "Provider Documentation" section prepared by Wilder Redd. . VTE Core Measure Inpt VTE Proph given/why not?: Warfarin (Coumadin), T.E.D. Stockings, SCD's
--- NOTE | 2017-08-20 13:36 | Anesthesiology Progress Note ---
Anesthesia Post Op Note Date & Time Aug 20, 2017 at 13:36 Vital Signs Pain Intensity: 3 Vital Signs Past 12 Hours Date Time Temp Pulse Resp B/P (MAP) Pulse Ox O2 Delivery O2 Flow Rate FiO2 08/20/17 13:31 91 18 143/66 94 08/20/17 13:31 88 18 08/20/17 13:26 93 19 126/70 94 08/20/17 13:26 98 19 08/20/17 13:21 93 16 133/75 95 08/20/17 13:21 91 16 08/20/17 13:16 94 17 140/72 95 08/20/17 13:16 93 17 08/20/17 13:11 95 16 08/20/17 13:11 95 16 133/73 93 08/20/17 13:06 87 20 08/20/17 13:06 87 20 142/74 95 08/20/17 13:01 83 19 135/72 100 08/20/17 13:01 86 19 08/20/17 12:56 86 18 08/20/17 12:56 84 18 125/74 97 08/20/17 12:51 87 23 127/68 94 08/20/17 12:51 92 23 08/20/17 12:50 133/70 08/20/17 12:46 36.5 93 14 127/68 100 Nasal Cannula 4 08/20/17 08:00 Room Air 08/20/17 07:13 36.7 75 19 125/70 (88) 95 CPAP Notes Mental Status: alert / awake / arousable, participated in evaluation Pt Amnestic to Procedure: Yes Nausea / Vomiting: adequately controlled Pain: adequately controlled Airway Patency, RR, SpO2: stable & adequate BP & HR: stable & adequate Hydration State: stable & adequate Anesthetic Complications: no major complications apparent
[2017-08-20] MEDS ORDERED: COUGH DROP (SUGAR FREE) LOZ 24 LOZ/1 BOX ONE (14:07)
[2017-08-20] MEDS ORDERED: HydrALAZINE HCL 20 MG/ML VIAL IV. PRN (14:15)
--- NOTE | 2017-08-20 14:29 | Hospitalist Progress Note ---
Hospitalist Progress Note Date of Service Aug 20, 2017. (Rylee Snow ., PAIvetteC) Subjective Pt evaluation today including: conversation w/ patient, conversation w/ family ( at bedside ), physical exam, lab review, review of inpatient medication list Voiding: no voiding problems Patient awake, alert/oriented x3 postop. Pain is moderately controlled at this point- IV Morphine given. Didn't eat yet. No BM/flatus postop. Patient denies any fever, chills, sweats, lightheadedness, dizziness, vision changes, CP, palpitations, edema, SOB, wheezing, cough, abdominal pain, nausea, vomiting, diarrhea, urinary symptoms, melena, numbness/tingling, weakness, anxiety/depression, active bleeding, or new skin discoloration/changes. (Rylee Snow ., LACY-C) Medications Current Inpatient Medications Medications (Trade) Dose Ordered Sig/Jose F Route Start Time Stop Time Status Last Admin Dose Admin Oxycodone/ Acetaminophen (Percocet 5-325mg Tab) `1-2 TABS FOR PAIN `1 TAB... Q4H PRN PO 08/19/17 15:30 09/02/17 15:29 Diphenhydramine HCl (Benadryl Cap) 25 mg Q8 PRN PO 08/19/17 15:30 09/18/17 15:29 Zolpidem Tartrate (Ambien Tab) 5 mg HSZ PRN PO 08/19/17 15:30 09/18/17 15:29 Ondansetron HCl (Zofran Inj) 4 mg Q6H PRN IV 08/19/17 15:30 09/18/17 15:29 Al Hydroxide/Mg Hydroxide (Maalox Susp) 30 ml Q6H PRN PO 08/19/17 15:30 09/18/17 15:29 Docusate Sodium (coLACE CAP) 100 mg BID PO 08/19/17 21:00 09/18/17 20:59 08/19/17 20:50 100 MG Magnesium Hydroxide (Milk Of Magnesia Susp) 30 ml Q6H PRN PO 08/19/17 15:30 09/18/17 15:29 Hydrochlorothiazide (Hydrochlorothiazide Tab) 25 mg QAM PO 08/20/17 09:00 09/19/17 08:59 Future Hold Lisinopril (Zestril Tab) 20 mg QAM PO 08/20/17 09:00 09/19/17 08:59 Future Hold Potassium Chloride (Klor-Con M10) 20 meq QPM PO 08/19/17 21:00 09/18/17 20:59 08/19/17 20:51 20 MEQ Pantoprazole Sodium (Protonix Tab) 40 mg QAM PO 08/20/17 09:00 09/19/17 08:59 Cefazolin Sodium 15 ml @ 3 mls/min PREOP IV 08/20/17 06:00 08/20/17 18:00 08/20/17 10:32 3 MLS/MIN Fentanyl Citrate (Fentanyl Inj) 25 mcg Q5M PRN IV 08/20/17 10:00 08/20/17 15:00 08/20/17 13:16 25 MCG Ondansetron HCl (Zofran Inj) 4 mg ONE PRN IV 08/20/17 10:00 08/20/17 15:00 Ephedrine Sulfate (EpHEDrine SULFATE INJ) 5 mg Q5M PRN IV 08/20/17 10:00 08/20/17 15:00 Atropine Sulfate (Atropine Sulfate 0.1mg/ml Inj) 0.5 mg Q1M PRN IV 08/20/17 10:00 08/20/17 15:00 Warfarin Sodium (Coumadin Tab) 2.5 mg Sa@1600 PO 08/21/17 16:00 09/20/17 15:59 Warfarin Sodium (Coumadin Tab) 5 mg SuMoTuWeThFr@1600 PO 08/20/17 16:00 09/19/17 15:59 Potassium Chloride/Dextrose/ Sod Cl 1,000 ml @ 100 mls/hr Q10H IV 08/20/17 13:30 09/19/17 13:29 Miscellaneous Medication (No Nsaids) 1 ea UD N/A 08/20/17 13:00 09/19/17 12:59 Morphine Sulfate (MoRPHine SULFATE INJ) 2 mg Q1HWA PRN IV 08/20/17 13:00 09/03/17 12:59 08/20/17 13:49 2 MG Bisacodyl (Dulcolax Supp) 10 mg DAILY PRN NC 08/20/17 13:00 09/19/17 12:59 Sodium Biphosphate/ Sodium Phosphate (Fleet Enema) 132 ml DAILY PRN NC 08/20/17 13:00 09/19/17 12:59 Senna (Senokot Tab) 17.2 mg HS PO 08/20/17 21:00 09/19/17 20:59 Multivitamins (Multivitamin Tab) 1 tab QAM PO 08/21/17 09:00 09/20/17 08:59 Hydralazine HCl (HydrALAZINE INJ) 10 mg Q6H PRN IV. 08/20/17 14:15 09/19/17 14:14 (Rylee Snow PA-C) Objective Vital Signs Date Time Temp Pulse Resp B/P (MAP) Pulse Ox O2 Delivery O2 Flow Rate FiO2 08/20/17 07:13 36.7 75 19 125/70 (88) 95 CPAP 08/19/17 23:45 Room Air 08/19/17 23:07 36.8 76 16 117/68 (84) 95 CPAP 08/19/17 15:30 Room Air 08/19/17 14:59 36.8 86 16 129/64 (85) 97 Room Air 08/19/17 14:08 36.8 84 16 142/79 (100) 96 Room Air 08/19/17 13:55 Room Air (Rylee Snow, LACY-C) Physical Exam General Appearance: no apparent distress, + obese, + pertinent finding (O2 NC) Eyes: normal inspection, PERRL ENT: hearing grossly normal Neck: supple Respiratory/Chest: lungs clear, no respiratory distress, no accessory muscle use Cardiovascular: regular rate, rhythm Abdomen: normal bowel sounds, non tender, soft Extremities: no pedal edema, no calf tenderness, + pertinent finding (L leg in KENISHA wrap ) Neurologic/Psychiatric: alert, normal mood/affect, oriented x 3 Skin: normal color, warm/dry, no rash (Rylee Snow, LACY-C) Laboratory Results Last 24 Hours Test 08/19/17 16:07 08/19/17 17:20 08/19/17 22:09 08/20/17 06:22 White Blood Count 10.15 K/uL 9.33 K/uL Red Blood Count 4.29 M/uL 4.08 M/uL Hemoglobin 13.0 g/dL 12.2 g/dL Hematocrit 36.6 % 35.3 % Mean Corpuscular Volume 85.3 fL 86.5 fL Mean Corpuscular Hemoglobin 30.3 pg 29.9 pg Mean Corpuscular Hemoglobin Concent 35.5 g/dl 34.6 g/dl RDW Standard Deviation 41.4 fL 43.4 fL RDW Coefficient of Variation 13.6 % 13.7 % Platelet Count 195 K/uL 207 K/uL Mean Platelet Volume 10.3 fL 10.7 fL Prothrombin Time 13.7 SECONDS 13.4 SECONDS 12.7 SECONDS Prothromb Time International Ratio 1.3 1.3 1.2 Sodium Level 134 mmol/L Potassium Level 3.5 mmol/L Chloride Level 100 mmol/L Carbon Dioxide Level 28 mmol/L Anion Gap 6.0 mmol/L Blood Urea Nitrogen 15 mg/dl Creatinine 0.78 mg/dl Est Creatinine Clear Calc Drug Dose 127.9 ml/min Estimated GFR () 112.1 Estimated GFR (Non- 96.7 BUN/Creatinine Ratio 19.1 Random Glucose 96 mg/dl Calcium Level 8.7 mg/dl Urine Color YELLOW Urine Appearance CLEAR Urine pH 7.0 Urine Specific [place] 1.017 Urine Protein NEG Urine Glucose (UA) NEG Urine Ketones NEG Urine Occult Blood NEG Urine Nitrite NEG Urine Bilirubin NEG Urine Urobilinogen NEG Urine Leukocyte Esterase NEG Neutrophils (%) (Auto) 58.9 % Lymphocytes (%) (Auto) 26.0 % Monocytes (%) (Auto) 13.3 % Eosinophils (%) (Auto) 1.1 % Basophils (%) (Auto) 0.2 % Neutrophils # (Auto) 5.49 K/uL Lymphocytes # (Auto) 2.43 K/uL Monocytes # (Auto) 1.24 K/uL Eosinophils # (Auto) 0.10 K/uL Basophils # (Auto) 0.02 K/uL Immature Granulocyte % (Auto) 0.5 % Immature Granulocyte # (Auto) 0.05 K/uL (Rylee Snow PA-C) Assessment and Plan 61-year-old man, with PMHx of KEVEN, obesity, 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 Left quad tendon tear s/p mechanical fall s/p L knee quadriceps tendon repair on 08/[address] Barter: - Surgical management, pain management, PT/OT, and DVT prophylaxis as per primary team - Bowel regimen in place - Encourage incentive spirometer - Follow postop CBC and PRP h/o PE/DVT in 2002 on chronic Coumadin: - Coumadin held since 08/16- given PO Vitamin K 5 mg x1 on 08/19- INR 1.2 today prior to surgery - Resume Coumadin tonight as per surgical team HTN: - Will hold Lisinopril and HCTZ tomorrow AM pending postop PRP - Hydralazine IV PRN KEVEN, obesity: CPAP HS GERD: Protonix daily- resume Prilosec at discharge DVT prophylaxis: Coumadin as per surgical team Code Status: LEVEL I, FULL Dispo: Discharge as per primary team (Rylee Snow ., PA-C) PA Physician Supervision Note: I interviewed and examined the patient. Discussed with Rylee CABA and agree with findings and plan as documented in the note. Any exceptions or clarifications are listed here: None Patient is seen postop for quadricep tendon repair he typically takes chronic Coumadin therapy for recurrent thrombophilia illnesses no complaints or problems , he doesn't isolated elevation of bilirubin which may be Gilbert's disease. Patient's vitals are stable postop anemia is very slight this is acute blood loss anemia. Physical exam shows heart irregular lungs be clear abdomen and be normal active bowel sounds soft and nontender he has good distal capillary refill on the left leg a brace is in place Status post quadricep tendon repair instituting Coumadin therapy 08/20 disposition determined by orthopedics whether he needs inpatient rehabilitation or rehabilitation at home Documented By: Sam Vazquez (Sam Vazquez M.D.)
[2017-08-20] MEDS: OXYCODONE/ACETAMINOPHEN 5-325 TAB PO PRN ×3 (14:40→21:54)
[2017-08-20] MEDS: DOCUSATE SODIUM 100 MG CAP PO SCH ×2 (15:40→21:15)
[2017-08-20] MEDS: PANTOprazole SOD 40 MG TAB PO SCH (15:40)
[2017-08-20] MEDS: D5W AND 1/2NSS + 20MEQ KCL 1,000 ML IV SCH (15:41)
[2017-08-20] MEDS: WARFARIN SOD 5 MG TAB PO SCH (15:42)
--- NOTE | 2017-08-20 15:45 | DIAGNOSTIC IMAGING REPORT ---
L KNEE 1 OR 2 VIEWS ROUTINE CLINICAL HISTORY: 61 years-old Male presenting with post op. TECHNIQUE: Frontal and crosstable lateral views of the left knee were obtained. COMPARISON: 08/15/2017. FINDINGS: Postsurgical changes of the knee with a surgical drain in place and overlying skin thang. Expected intra-articular and soft tissue emphysema. An overlying external brace is noted. Diffuse soft tissue swelling. No acute fracture or malalignment. Knee joint effusion noted. Tricompartmental degenerative changes. IMPRESSION: Expected postsurgical changes. No radiographic evidence of acute osseous injury. Electronically signed by: Trung Alves M.D. 08/20/2017 3:44 PM Dictated Date/Time: 08/20/2017 3:42 PM
--- NOTE | 2017-08-20 15:50 | OPERATIVE REPORT ---
DATE OF OPERATION: 08/20/2017 PREOPERATIVE DIAGNOSES: 1. Left quadriceps tendon tear. 2. Avulsion fracture of the proximal patella. POSTOPERATIVE DIAGNOSES: Same. PROCEDURE: 1. Left quadriceps tendon repair. 2. Removal of avulsion fracture from the anterior knee. SURGEON: Dave Simon DO STRAIGHT TRUCK DRIVER: Due to the complex nature of the procedure, the entire surgery was performed with the assistant manager/embalmer of Wilder Redd PA-C. The fast food sales assistant, under direct supervision, was involved in the actual performance of all aspects of the surgical procedure including hemostasis, tissue retraction and incision, instrument management, patient positioning, and wound closure. ANESTHESIA: General endotracheal tube with femoral nerve block. SPECIMENS: None. DRAINS: Hemovac x2. COMPLICATIONS: None. BLOOD LOSS: 30 mL PERTINENT HISTORY: This is a 61-year-old gentleman who sustained a slip and fall on his left knee. He felt immediate pain, unable to extend the knee. He was seen in the Emergency Department, was placed in a splint and knee immobilizer with crutches, seen in clinic and reviewing his radiographs and other advanced studies noting quadriceps tendon tear with avulsion fracture of the superior patella. The patient is scheduled for surgery as indicated. All potential risks, benefits, complications, alternatives, rehab, potential for incomplete relief of symptoms, need for further surgery, DVT, PE, , persistent pain, swelling, scarring, weakness, neurovascular injury, wound complications or loss of function, stiffness and discomfort was discussed with the patient. The patient decided to proceed with the procedure as indicated. DESCRIPTION OF PROCEDURE: After femoral nerve block was administered in the preop holding area, the patient was then taken to the operative suite, placed supine on the operating room table. I reviewed the consent and identification of proper operative site, the patient was anesthetized, endotracheal tube was placed. Tourniquet was placed high on the left thigh over cast padding. Lower extremity was then sterilely prepped and draped in usual fashion, elevated, and exsanguinated with an Esmarch bandage, tourniquet inflated to 350 mmHg. Next, a 10 blade scalpel was used to make an incision on the anterior aspect of the left knee, incision was deepened through subcutaneous tissue and meticulous hemostasis was achieved with electrocautery. A large amount of gelatinous coagulated blood was removed from the anterior aspect of the knee. The obvious quadriceps rupture was identified and debrided carefully with a rongeur. The superior pole of the patella was identified and then denuded of cortical bone to increase surface area and bleeding and the avulsion fracture from the superior pole of the patella was identified in the proximal portion of the quadriceps tendon and was resected with a 15 blade scalpel. Next, two #5 FiberWire sutures were woven using a Krackow locking loop technique into the proximal quadriceps. Using 2.5 mm drill bit 3 bone tunnels were drilled under live fluoroscopic assistance under the superior pole of the patella, exiting inferiorly. Next, a Travador suture passer was then used to draw the 2 central sutures down the central channel within the patella and the medial and lateral sutures down the medial and lateral channels of the patella. Next, the knee was held in approximately 25-30 degrees of flexion over a bolster and the pulsatile lavage was then used to cleanse the knee until clear followed by closure of the quadriceps tendon repair at approximately 25-30 degrees of flexion of the knee. This reapproximated the quadriceps mechanism and then #5 FiberWire sutures were placed in the medial and lateral retinaculum to reinforce the repair. Next, 10-Jordanian Hemovac drains x2 were placed intraarticularly and then exiting superior medial and superior lateral aspect of the knee. This was then followed by reinforcement repair with interrupted #1 Vicryl sutures. The dermis was then closed using 2-0 Vicryl after irrigation with sterile normal saline with pulsatile lavage and the final radiographs demonstrating anatomic position of the patella, both AP and lateral projections. This was then followed by closure of the skin with skin thang and a sterile compressive dressing was applied as well as a knee immobilizer locked in full extension. The tourniquet was released, and the patient was awakened and taken to recovery in stable condition. I attest to the content of the Intraoperative Record and any orders documented therein. Any exception s are noted below.
[2017-08-20] MEDS ORDERED: DOCUSATE SODIUM 100 MG CAP PO SCH (21:00)
[2017-08-20] MEDS: SENNA 8.6 MG TAB PO SCH (21:15)
[2017-08-20] MEDS: POTASSIUM CHLORIDE 10 MEQ TABCR PO SCH (21:16)
[2017-08-21] MEDS: D5W AND 1/2NSS + 20MEQ KCL 1,000 ML IV SCH (01:57)
[2017-08-21 03:32] VITALS: BP 151/71; PULSE 83; TEMP 36.8; O2SAT 96
[2017-08-21 06:36] LABS: HEMATOCRIT 34.5 % (42-52); HEMOGLOBIN 11.7 g/dL (14.0-18.0); MEAN CORPUSCULAR HEMOGLOBIN 29.8 pg (25-34); MEAN CORPUSCULAR HGB CONC 33.9 g/dl (32-36); MEAN PLATELET VOLUME 10.2 fL (7.4-10.4); PLATELET COUNT 197 K/uL (130-400); RED CELL DISTRIBUTION WIDTH CV 13.9 % (11.5-14.5); RED CELL DISTRIBUTION WIDTH SD 44.4 fL (36.4-46.3); WHITE BLOOD COUNT 13.39 K/uL (4.8-10.8)
[2017-08-21 06:49] LABS: INR 1.2 (0.9-1.1)
[2017-08-21 07:02] VITALS: BP 150/77; PULSE 92; TEMP 36.8; O2SAT 95
--- NOTE | 2017-08-21 07:40 | Orthopedic Progress Note ---
Orthopedic Progress Note Date of Service Aug 21, 2017. Subjective Post OP Day: 1 Reports: feeling well, pain controlled w PO medications, Denies: complaints, chest pain, SOB, nausea / vomiting, light headedness, calf pain Objective calves soft nontender, N/V intact, splint C/D/I, dressing C/D/I, A&O x3, toes mobile Date Time Temp Pulse Resp B/P (MAP) Pulse Ox O2 Delivery O2 Flow Rate FiO2 08/21/17 03:32 36.8 83 16 151/71 (97) 96 CPAP 08/20/17 22:59 36.9 94 17 160/73 (102) 96 CPAP 08/20/17 19:49 Room Air 08/20/17 18:24 37.1 92 16 149/78 (101) 94 Room Air 08/20/17 16:45 36.3 110 18 155/83 (107) 93 Room Air 08/20/17 15:45 36.8 98 20 152/74 (100) 95 Nasal Cannula 2.0 08/20/17 15:05 Nasal Cannula 08/20/17 14:48 98 17 143/77 (99) 95 Nasal Cannula 2.0 08/20/17 14:15 36.8 100 17 144/69 (94) 95 Nasal Cannula 2.0 08/20/17 13:46 36.7 85 16 144/76 (98) 94 08/20/17 13:31 91 18 143/66 94 08/20/17 13:31 88 18 08/20/17 13:26 93 19 126/70 94 08/20/17 13:26 98 19 08/20/17 13:21 93 16 133/75 95 08/20/17 13:21 91 16 08/20/17 13:16 94 17 140/72 95 08/20/17 13:16 93 17 08/20/17 13:11 95 16 08/20/17 13:11 95 16 133/73 93 08/20/17 13:06 87 20 08/20/17 13:06 87 20 142/74 95 08/20/17 13:01 83 19 135/72 100 08/20/17 13:01 86 19 08/20/17 12:56 86 18 08/20/17 12:56 84 18 125/74 97 08/20/17 12:51 87 23 127/68 94 08/20/17 12:51 92 23 08/20/17 12:50 133/70 08/20/17 12:46 36.5 93 14 127/68 100 Nasal Cannula 4 08/20/17 08:00 Room Air Laboratory Results 24 Hours: Test 08/21/17 06:05 Hematocrit 34.5 % Hemoglobin 11.7 g/dL Prothromb Time International Ratio 1.2 Prothrombin Time 12.7 SECONDS Assessment & Plan Assessment: POD #1 s/p 1. Left quadriceps tendon repair. 2. Removal of avulsion fracture from the anterior knee. remain NWB, keep brace on at all times, no ROM. due to restrictions, patient is unsure that he will be able to return home. will discuss with CM his options Discharge Planning Discharge Planning: uncertain
[2017-08-21] MEDS: DOCUSATE SODIUM 100 MG CAP PO SCH ×2 (08:37→20:43)
[2017-08-21] MEDS: PANTOprazole SOD 40 MG TAB PO SCH (08:38)
[2017-08-21] MEDS: MULTIVITAMIN TAB PO SCH (08:38)
--- NOTE | 2017-08-21 10:06 | Hospitalist Progress Note ---
Hospitalist Progress Note Date of Service Aug 21, 2017. (Carline Bhakta PA-C) Subjective Pt evaluation today including: conversation w/ patient, physical exam, chart review, lab review, review of studies Pain: Minimal R quad pain PO Intake: Good Voiding: no voiding problems The patient was seen and examined this morning. Pt reports doing ok overall. Pain is minimal with no movement. He is very cautious with moving the leg at all and fears he will do something to injure it. He has been up and out of bed to the chair with 2 assist. Pt has crutches and walker in the room to assist, and has used crutches prior to surgery. - Discussion of rehab being held with ortho, PT/OT, and CM. Pt is leaning towards needed rehab. - Pt is tolerating PO intake without difficulty, passing flatus, no BM yet. ROS: 6 point ROS reviewed and otherwise negative. (Carline Bhakta PA-C) Objective Vital Signs Date Time Temp Pulse Resp B/P (MAP) Pulse Ox O2 Delivery O2 Flow Rate FiO2 08/21/17 07:02 36.8 92 18 150/77 (101) 95 Room Air 08/21/17 03:32 36.8 83 16 151/71 (97) 96 CPAP 08/20/17 22:59 36.9 94 17 160/73 (102) 96 CPAP 08/20/17 19:49 Room Air 08/20/17 18:24 37.1 92 16 149/78 (101) 94 Room Air 08/20/17 16:45 36.3 110 18 155/83 (107) 93 Room Air 08/20/17 15:45 36.8 98 20 152/74 (100) 95 Nasal Cannula 2.0 08/20/17 15:05 Nasal Cannula 08/20/17 14:48 98 17 143/77 (99) 95 Nasal Cannula 2.0 08/20/17 14:15 36.8 100 17 144/69 (94) 95 Nasal Cannula 2.0 08/20/17 13:46 36.7 85 16 144/76 (98) 94 08/20/17 13:31 91 18 143/66 94 08/20/17 13:31 88 18 08/20/17 13:26 93 19 126/70 94 08/20/17 13:26 98 19 08/20/17 13:21 93 16 133/75 95 08/20/17 13:21 91 16 08/20/17 13:16 94 17 140/72 95 08/20/17 13:16 93 17 08/20/17 13:11 95 16 08/20/17 13:11 95 16 133/73 93 08/20/17 13:06 87 20 08/20/17 13:06 87 20 142/74 95 08/20/17 13:01 83 19 135/72 100 08/20/17 13:01 86 19 08/20/17 12:56 86 18 08/20/17 12:56 84 18 125/74 97 08/20/17 12:51 87 23 127/68 94 08/20/17 12:51 92 23 08/20/17 12:50 133/70 08/20/17 12:46 36.5 93 14 127/68 100 Nasal Cannula 4 (Carline Bhakta PA-C) Physical Exam General Appearance: WD/WN, no apparent distress, + obese Eyes: PERRL, EOMI ENT: hearing grossly normal, pharynx normal, + pertinent finding (MMM) Neck: supple, no JVD Respiratory/Chest: lungs clear, no respiratory distress, no accessory muscle use Cardiovascular: regular rate, rhythm, no murmur Abdomen: normal bowel sounds, non tender, soft Extremities: no pedal edema, no calf tenderness, + pertinent finding (LLE in immobilizing brace. Hemovac drain with minimal outs. Wrapped in KENISHA. Able to do passive hip flexion, good dorsi and plantar flexion strength. Sensation to light touch intact distally.) Neurologic/Psychiatric: alert, normal mood/affect, oriented x 3 Skin: normal color, warm/dry (Carline Bhakta PA-C) Laboratory Results Last 24 Hours Test 08/21/17 06:05 White Blood Count 13.39 K/uL Red Blood Count 3.92 M/uL Hemoglobin 11.7 g/dL Hematocrit 34.5 % Mean Corpuscular Volume 88.0 fL Mean Corpuscular Hemoglobin 29.8 pg Mean Corpuscular Hemoglobin Concent 33.9 g/dl RDW Standard Deviation 44.4 fL RDW Coefficient of Variation 13.9 % Platelet Count 197 K/uL Mean Platelet Volume 10.2 fL Prothrombin Time 12.7 SECONDS Prothromb Time International Ratio 1.2 (Carline Bhakta PA-C) Assessment and Plan 61-year-old man, with PMHx of KEVEN, obesity, 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 Left quad tendon tear s/p mechanical fall s/p L knee quadriceps tendon repair on 08/[address] Simon: - Surgical management, pain management, PT/OT, and DVT prophylaxis as per primary team - Bowel regimen in place - passing flatus, no BM yet - Encourage incentive spirometer - breath sounds are clear - Follow postop CBC and PRP h/o PE/DVT in 2002 on chronic Coumadin: - Coumadin held since 08/16- given PO Vitamin K 5 mg x1 on 08/19 - INR 1.2 today - Resumed Coumadin on 08/20: 5 mg on SunMTWThF, 2.5 mg on Sat HTN: - Resume Lisinopril and HCTZ today with elevated BP in the 150s and stable Cr. - Hydralazine IV PRN KEVEN, obesity: CPAP HS GERD: Protonix daily- resume Prilosec at discharge DVT prophylaxis: Coumadin as per surgical team Code Status: LEVEL I, FULL Dispo: Discharge as per primary team, CM to assist with possible rehab placement (Carline Bhakta PA-C) PA Physician Supervision Note: I discussed with Carline Bhakta PAC and agree with findings and plan as documented in the note. Any exceptions or clarifications are listed here: None Patient is doing well postoperatively has been restarted on his Coumadin for his VTE risk he otherwise remained stable. We'll sign off at this time unless further medical problems arise Documented By: Sam Vazquez (Sam Vazquez M.D.)
[2017-08-21] MEDS ORDERED: NURSING VERBAL MED ORDER ONE (13:45)
[2017-08-21] MEDS: HYDROCHLOROTHIAZIDE 25 MG TAB PO SCH (13:58)
[2017-08-21] MEDS: LISINOPRIL 20 MG TAB PO SCH (13:58)
[2017-08-21 15:11] VITALS: BP 138/81; PULSE 94; TEMP 37.1; O2SAT 95
[2017-08-21] MEDS ORDERED: WARFARIN SOD 2.5 MG TAB PO SCH (16:00)
[2017-08-21] MEDS: POTASSIUM CHLORIDE 10 MEQ TABCR PO SCH (20:43)
[2017-08-21] MEDS: SENNA 8.6 MG TAB PO SCH (20:43)
[2017-08-21 22:58] VITALS: BP 136/80; PULSE 96; TEMP 36.9; O2SAT 94
[2017-08-22 06:02] LABS: HEMATOCRIT 37.1 % (42-52); HEMOGLOBIN 12.9 g/dL (14.0-18.0); MEAN CELL VOLUME 87.3 fL (80-100); MEAN CORPUSCULAR HEMOGLOBIN 30.4 pg (25-34); MEAN CORPUSCULAR HGB CONC 34.8 g/dl (32-36); MEAN PLATELET VOLUME 10.3 fL (7.4-10.4); PLATELET COUNT 201 K/uL (130-400); RED CELL DISTRIBUTION WIDTH CV 13.9 % (11.5-14.5); RED CELL DISTRIBUTION WIDTH SD 43.9 fL (36.4-46.3); WHITE BLOOD COUNT 12.91 K/uL (4.8-10.8)
[2017-08-22 06:04] LABS: INR 1.3 (0.9-1.1)
--- NOTE | 2017-08-22 06:39 | Orthopedic Progress Note ---
Orthopedic Progress Note Date of Service Aug 22, 2017. Subjective Post OP Day: 2 Reports: feeling well, pain controlled w PO medications, Denies: complaints, chest pain, SOB, nausea / vomiting, light headedness, calf pain Additional Notes: anxious last evening about discharge, due to amount of steps at his home does not feel safe returning there at this time. Objective calves soft nontender, N/V intact, capillary refill less than 2 sec., dressing C /D/I, A&O x3, toes mobile Date Time Temp Pulse Resp B/P (MAP) Pulse Ox O2 Delivery O2 Flow Rate FiO2 08/22/17 00:16 Room Air CPAP 08/21/17 22:58 36.9 96 17 136/80 (98) 94 Room Air 08/21/17 15:20 Room Air 08/21/17 15:11 37.1 94 18 138/81 (100) 95 Room Air 08/21/17 08:00 Room Air 08/21/17 07:02 36.8 92 18 150/77 (101) 95 Room Air Laboratory Results 24 Hours: Test 08/22/17 05:17 08/22/17 05:37 Hematocrit 37.1 % Hemoglobin 12.9 g/dL Prothromb Time International Ratio 1.3 Prothrombin Time 13.2 SECONDS Assessment & Plan Assessment: POD #2 s/p 1. Left quadriceps tendon repair. 2. Removal of avulsion fracture from the anterior knee. remain NWB, keep brace on at all times, no ROM. due to restrictions, patient is unsure that he will be able to return home. will discuss with CM his options, awaiting approval for [facility] Discharge Planning Discharge Planning: uncertain
[2017-08-22 07:21] VITALS: BP 127/73; PULSE 99; TEMP 36.8; O2SAT 95
[2017-08-22] MEDS: PANTOprazole SOD 40 MG TAB PO SCH (09:24)
[2017-08-22] MEDS: LISINOPRIL 20 MG TAB PO SCH (09:24)
[2017-08-22] MEDS: MULTIVITAMIN TAB PO SCH (09:24)
[2017-08-22] MEDS: DOCUSATE SODIUM 100 MG CAP PO SCH ×2 (09:24→20:49)
[2017-08-22] MEDS: HYDROCHLOROTHIAZIDE 25 MG TAB PO SCH (09:25)
[2017-08-22 09:37] VITALS: BP 127/73; PULSE 99; O2SAT 95
[2017-08-22 15:26] VITALS: BP 100/64; PULSE 91; TEMP 36.9; O2SAT 95
[2017-08-22] MEDS: WARFARIN SOD 5 MG TAB PO SCH (16:01)
[2017-08-22] MEDS: SENNA 8.6 MG TAB PO SCH (20:49)
[2017-08-22] MEDS: POTASSIUM CHLORIDE 10 MEQ TABCR PO SCH (20:49)
[2017-08-22 22:57] VITALS: BP 122/76; PULSE 95; TEMP 36.8; O2SAT 97
[2017-08-23 05:38] LABS: HEMATOCRIT 37.8 % (42-52); MEAN CELL VOLUME 87.7 fL (80-100); MEAN CORPUSCULAR HEMOGLOBIN 30.2 pg (25-34); MEAN CORPUSCULAR HGB CONC 34.4 g/dl (32-36); MEAN PLATELET VOLUME 10.3 fL (7.4-10.4); PLATELET COUNT 220 K/uL (130-400); RED CELL DISTRIBUTION WIDTH CV 13.9 % (11.5-14.5); RED CELL DISTRIBUTION WIDTH SD 44.3 fL (36.4-46.3); WHITE BLOOD COUNT 10.24 K/uL (4.8-10.8)
[2017-08-23 05:46] LABS: INR 1.1 (0.9-1.1)
--- NOTE | 2017-08-23 07:33 | Anesthesiology Progress Note ---
Anesthesia Post Op Note Date & Time Aug 23, 2017 at 07:33 Vital Signs Pain Intensity: 0.0 Vital Signs Past 12 Hours Date Time Temp Pulse Resp B/P (MAP) Pulse Ox O2 Delivery O2 Flow Rate FiO2 08/22/17 23:42 Room Air CPAP 08/22/17 22:57 36.8 95 17 122/76 (91) 97 Room Air Notes Mental Status: alert / awake / arousable, participated in evaluation Pt Amnestic to Procedure: Yes Nausea / Vomiting: adequately controlled Pain: adequately controlled Airway Patency, RR, SpO2: stable & adequate BP & HR: stable & adequate Hydration State: stable & adequate Anesthetic Complications: no major complications apparent
[2017-08-23 07:57] VITALS: BP 138/84; PULSE 100; TEMP 36.6; O2SAT 96
[2017-08-23] MEDS ORDERED: OXYC-57 PO (08:10)
--- NOTE | 2017-08-23 08:14 | Discharge Instructions ---
Discharge Instructions Date of Service Aug 23, 2017. Admission Reason for Admission: Left Knee Quadriceps Tendon Tear Discharge Discharge Diagnosis / Problem: left quadriceps tendon tear Discharge Goals Goal(s): Decrease discomfort, Improve function Activity Recommendations Activity Level: Up Ad Elsie Therapies: Weight Bearing Status (Nonweightbearing left lower extremity) Weightbearing Status: Left non-weightbearing . Additional Information Patient informed of condition: Yes Advance Directives: Yes DNR: No Level of Care: Acute Rehab Communicable Disease: No Prognosis: Stable Childers Catheter: No Instructions / Follow-Up Instructions / Follow-Up Instructions / Follow-Up ACTIVITY RECOMMENDATIONS: * You are to wear the brace at all times. * No range of motion of the left knee. * You are to be nonweightbearing on the left lower extremity at all times. * May drive car if: a. Standard transmission - right or left leg surgery - as soon as walking without crutches. b. Automatic transmission - left leg surgery - immediately right leg - as soon as walking without crutches. SPECIAL CARE INSTRUCTIONS: * Silverlon- This is a large adhesive bandage that contains silver ions. This helps your incision heal by fighting off bacteria and protecting it from the outside environment. You are permitted to shower with this dressing. This will remain on your incision for 7 days and then should be removed. Some visible blood or drainage through the dressing window is normal. If there is significant drainage or leaking noted before the 7 days notify your doctor's office immediately. Once removed, keep incision clean and dry. If there is any drainage or redness noted, please call your surgeon. * Change dressing before leaving hospital. * Apply ice to knee for 72 hours after surgery. * Call office at if there are any problems such as excessive wound drainage or increased temperature above 100 degrees F. FOLLOW UP VISIT: If appointment is not already scheduled: Please call [facility] to make a follow-up appointment for 10-14 days after your surgery at . Current Hospital Diet Patient's current hospital diet: Regular Diet Discharge Diet Recommended Diet: Regular Diet Procedures Procedures Performed: Left Knee Quadriceps Tendon Repair Pending Studies Studies pending at discharge: no Laboratory Results Hemoglobin A1c Test 06/04/17 10:00 Range/Units Estimated Average Glucose 111 mg/dl Hemoglobin A1c 5.5 4.5-5.6 % Lipid Panel Test 06/04/17 10:00 Range/Units Triglycerides Level 164 H 0-150 mg/dl Cholesterol Level 166 0-200 mg/dl HDL Cholesterol 37 mg/dl LDL Cholesterol Direct 104 mg/dl Cholesterol/HDL Ratio 4.5 LDL Cholesterol, Calculated mg/dl Medical Emergencies . Who to Call and When: Medical Emergencies: If at any time you feel your situation is an emergency, please call 911 immediately. . Non-Emergent Contact Non-Emergency issues call your: Surgeon Call Non-Emergent contact if: temperature is above 101, your pain is not controlled, your pain is worsening, wound has increased drainage, wound has increased redness . . "Provider Documentation" section prepared by Wilder Redd. . Core Measure Problem Core Measures: None
[2017-08-23] MEDS: DOCUSATE SODIUM 100 MG CAP PO SCH ×2 (08:37→20:40)
[2017-08-23] MEDS: HYDROCHLOROTHIAZIDE 25 MG TAB PO SCH (08:37)
[2017-08-23] MEDS: MULTIVITAMIN TAB PO SCH (08:37)
[2017-08-23] MEDS: LISINOPRIL 20 MG TAB PO SCH (08:38)
[2017-08-23] MEDS: PANTOprazole SOD 40 MG TAB PO SCH (08:38)
[2017-08-23 09:52] VITALS: O2SAT 96
[2017-08-23 15:32] VITALS: BP 117/67; PULSE 110; TEMP 37; O2SAT 95
[2017-08-23] MEDS: WARFARIN SOD 5 MG TAB PO SCH (15:56)
[2017-08-23] MEDS: POTASSIUM CHLORIDE 10 MEQ TABCR PO SCH (20:40)
[2017-08-23] MEDS: SENNA 8.6 MG TAB PO SCH (20:41)
[2017-08-23 22:52] VITALS: BP 124/74; PULSE 85; TEMP 36.9; O2SAT 96
[2017-08-24 06:02] LABS: HEMATOCRIT 37.2 % (42-52); HEMOGLOBIN 12.9 g/dL (14.0-18.0); MEAN CELL VOLUME 86.3 fL (80-100); MEAN CORPUSCULAR HEMOGLOBIN 29.9 pg (25-34); MEAN CORPUSCULAR HGB CONC 34.7 g/dl (32-36); MEAN PLATELET VOLUME 9.8 fL (7.4-10.4); PLATELET COUNT 229 K/uL (130-400); RED CELL DISTRIBUTION WIDTH CV 13.7 % (11.5-14.5); RED CELL DISTRIBUTION WIDTH SD 43.3 fL (36.4-46.3); WHITE BLOOD COUNT 10.76 K/uL (4.8-10.8)
[2017-08-24 06:09] LABS: INR 1.3 (0.9-1.1)
[2017-08-24 07:11] VITALS: BP 136/72; PULSE 82; TEMP 36.8; O2SAT 98
--- NOTE | 2017-08-24 07:43 | Orthopedic Progress Note ---
Orthopedic Progress Note Date of Service Aug 24, 2017. Subjective Post OP Day: 4 Reports: feeling well, Denies: complaints Objective calves soft nontender, dressing C/D/I, A&O x3, toes mobile Havil[place] brace applied... Date Time Temp Pulse Resp B/P (MAP) Pulse Ox O2 Delivery O2 Flow Rate FiO2 08/23/17 23:45 CPAP 08/23/17 22:52 36.9 85 18 124/74 (91) 96 CPAP 08/23/17 15:45 Room Air 08/23/17 15:32 37.0 110 20 117/67 (84) 95 Room Air 08/23/17 09:52 96 Room Air 08/23/17 07:57 36.6 100 18 138/84 (102) 96 Room Air Laboratory Results 24 Hours: Test 08/24/17 05:38 Hematocrit 37.2 % Hemoglobin 12.9 g/dL Prothromb Time International Ratio 1.3 Prothrombin Time 13.4 SECONDS Assessment & Plan Assessment: POD #4 s/p 1. Left quadriceps tendon repair. 2. Removal of avulsion fracture from the anterior knee. remain NWB, keep brace on at all times, no ROM. due to restrictions, patient is unsure that he will be able to return home. will discuss with CM his options, [facility] ARJUN SULLIVAN YESTERDAY AFTERNOON. WAITING TO HEAR REPLY. CONTINUE PT Discharge Planning Discharge Planning: uncertain
[2017-08-24] MEDS: DOCUSATE SODIUM 100 MG CAP PO SCH ×2 (09:38→21:14)
[2017-08-24] MEDS: LISINOPRIL 20 MG TAB PO SCH (09:39)
[2017-08-24] MEDS: MULTIVITAMIN TAB PO SCH (09:39)
[2017-08-24] MEDS: HYDROCHLOROTHIAZIDE 25 MG TAB PO SCH (09:39)
[2017-08-24] MEDS: PANTOprazole SOD 40 MG TAB PO SCH (09:39)
[2017-08-24 15:22] VITALS: BP 118/72; PULSE 97; TEMP 37.2; O2SAT 95
[2017-08-24] MEDS: WARFARIN SOD 5 MG TAB PO SCH (16:19)
[2017-08-24] MEDS: SENNA 8.6 MG TAB PO SCH (21:00)
[2017-08-24] MEDS: POTASSIUM CHLORIDE 10 MEQ TABCR PO SCH (21:14)
[2017-08-24 23:35] VITALS: BP 126/75; PULSE 89; TEMP 36.8; O2SAT 94
[2017-08-25 07:53] VITALS: BP 121/75; PULSE 64; TEMP 36.4; O2SAT 95
--- NOTE | 2017-08-25 08:10 | Orthopedic Progress Note ---
Orthopedic Progress Note Date of Service Aug 25, 2017. Subjective Post OP Day: 5 Reports: feeling well, Denies: chest pain, SOB, nausea / vomiting, light headedness, calf pain Objective calves soft nontender, N/V intact, capillary refill less than 2 sec., incision C /D/I, A&O x3, toes mobile Date Time Temp Pulse Resp B/P (MAP) Pulse Ox O2 Delivery O2 Flow Rate FiO2 08/25/17 07:53 36.4 64 20 121/75 (90) 95 Room Air 08/25/17 00:25 Room Air CPAP 08/24/17 23:35 36.8 89 16 126/75 (92) 94 Room Air 08/24/17 15:22 37.2 97 18 118/72 (87) 95 Room Air 08/24/17 15:20 Room Air CPAP 08/24/17 08:30 Room Air Laboratory Results 24 Hours: Test 08/25/17 04:44 Assessment & Plan Assessment: POD #5 s/p 1. Left quadriceps tendon repair. 2. Removal of avulsion fracture from the anterior knee. remain NWB, keep brace on at all times, no ROM. due to restrictions, patient is unsure that he will be able to return home. will discuss with CM his options, awaiting approval for [facility] INITIATED BY ARJUN SULLIVAN YESTERDAY AFTERNOON. WAITING TO HEAR REPLY. CONTINUE PT PATIENT IS STABLE FOR TRANSFER TO FACILITY ONCE APPROVED. Discharge Planning Discharge Planning: uncertain
[2017-08-25 08:30] LABS: HEMATOCRIT 39.4 % (42-52); HEMOGLOBIN 13.7 g/dL (14.0-18.0); MEAN CORPUSCULAR HEMOGLOBIN 30.2 pg (25-34); MEAN CORPUSCULAR HGB CONC 34.8 g/dl (32-36); MEAN PLATELET VOLUME 9.8 fL (7.4-10.4); PLATELET COUNT 238 K/uL (130-400); RED CELL DISTRIBUTION WIDTH CV 13.8 % (11.5-14.5); RED CELL DISTRIBUTION WIDTH SD 43.5 fL (36.4-46.3); WHITE BLOOD COUNT 9.95 K/uL (4.8-10.8)
[2017-08-25 08:44] LABS: INR 1.3 (0.9-1.1)
[2017-08-25] MEDS: DOCUSATE SODIUM 100 MG CAP PO SCH (08:47)
[2017-08-25] MEDS: LISINOPRIL 20 MG TAB PO SCH (08:47)
[2017-08-25] MEDS: HYDROCHLOROTHIAZIDE 25 MG TAB PO SCH (08:47)
[2017-08-25] MEDS: MULTIVITAMIN TAB PO SCH (08:47)
[2017-08-25] MEDS: PANTOprazole SOD 40 MG TAB PO SCH (09:13)
[2017-08-25 09:42] VITALS: O2SAT 95
[2017-08-25 14:32] VITALS: BP 121/75; PULSE 64; TEMP 36.4; O2SAT 95
[2017-08-25] MEDS: WARFARIN SOD 5 MG TAB PO SCH (14:43)
== END 2017-08-25 15:00 | DRG 488 ==
LOC: UNDOADMIN 12:30 → C.MSN 12:30
PROVIDERS: ADMIT Orthopaedic Surgery Sports Medicine; ATTEND Orthopaedic Surgery Sports Medicine
PROC: 0LMM0ZZ Reattachment of Left Upper Leg Tendon, Open Approach (ICD-10-PCS; principal; 2017-08-20 10:30)
PROC: 0QTF0ZZ Resection of Left Patella, Open Approach (ICD-10-PCS; principal; 2017-08-20 10:30)
DX: S76.112A Strain of left quadriceps muscle, fascia and tendon, initial encounter (principal); S82.009A Unspecified fracture of unspecified patella, initial encounter for closed fracture; Z68.42 Body mass index [BMI] 45.0-49.9, adult; W19.XXXA Unspecified fall, initial encounter; Z86.711 Personal history of pulmonary embolism; K21.9 Gastro-esophageal reflux disease without esophagitis; I10 Essential (primary) hypertension; G47.33 Obstructive sleep apnea (adult) (pediatric); E66.9 Obesity, unspecified; Z79.01 Long term (current) use of anticoagulants

== ENCOUNTER → 2017-08-30 | Outpatient (CLI) | payer BC ==
[~2017-08-30] MED LIST changes: -HYDR-5688 PO; +OXYC-57 PO
[2017-08-30 09:41] LABS: INR 1.4 (0.9-1.1)
== END | disposition home or self-care (01) ==
LOC: C.LABVPSUA 08:50
PROVIDERS: ATTEND Internal Medicine Critical Care Medicine
DX: I82.409 Acute embolism and thrombosis of unspecified deep veins of unspecified lower extremity (principal)

== ENCOUNTER → 2017-09-02 | Outpatient (CLI) | payer BC ==
[2017-09-02 09:40] LABS: INR 1.6 (0.9-1.1)
== END | disposition home or self-care (01) ==
LOC: C.LABVPSUA 09:04
PROVIDERS: ATTEND Internal Medicine Critical Care Medicine
DX: Z86.718 Personal history of other venous thrombosis and embolism (principal); Z79.01 Long term (current) use of anticoagulants

== ENCOUNTER → 2017-09-07 | Outpatient (CLI) | payer BC ==
[2017-09-07 10:29] LABS: INR 2.7 (0.9-1.1)
== END | disposition home or self-care (01) ==
LOC: C.LABVPSUA 09:14
PROVIDERS: ATTEND Internal Medicine Critical Care Medicine
DX: Z86.718 Personal history of other venous thrombosis and embolism (principal)

== ENCOUNTER → 2017-09-10 | Outpatient (CLI) | payer BC ==
[2017-09-10 09:08] LABS: INR 2.7 (0.9-1.1)
== END | disposition home or self-care (01) ==
LOC: C.LABVPSUA 08:44
PROVIDERS: ATTEND Internal Medicine Critical Care Medicine
DX: Z86.718 Personal history of other venous thrombosis and embolism (principal)

== ENCOUNTER → 2017-09-14 | Outpatient (CLI) | payer BC | END | disposition home or self-care (01) | LOC: C.LABVPSUA 09:49 | PROVIDERS: ATTEND Internal Medicine Critical Care Medicine | DX: S76.112D Strain of left quadriceps muscle, fascia and tendon, subsequent encounter (principal); X58.XXXD Exposure to other specified factors, subsequent encounter ==

== ENCOUNTER → 2017-11-01 | Outpatient (CLI) | payer BC ==
[2017-11-01 18:14] LABS: INR 2.8 (0.9-1.1)
== END | disposition home or self-care (01) ==
LOC: C.LABSPEC 17:44
PROVIDERS: ATTEND Internal Medicine
DX: Z51.81 Encounter for therapeutic drug level monitoring (principal); Z86.718 Personal history of other venous thrombosis and embolism; Z79.01 Long term (current) use of anticoagulants

== ENCOUNTER → 2017-12-03 | Outpatient (CLI) | payer BC ==
[2017-12-03 19:27] LABS: ALBUMIN 3.8 gm/dl (3.4-5.0); ALT/SGPT 37 U/L (12-78); AST/SGOT 27 U/L (15-37); BLOOD UREA NITROGEN 14 mg/dl (7-18); CALCIUM 8.7 mg/dl (8.5-10.1); CARBON DIOXIDE 26 mmol/L (21-32); CHOLESTEROL 177 mg/dl (0-200); CREATININE 0.89 mg/dl (0.60-1.40); GLUCOSE 94 mg/dl (70-99); POTASSIUM 3.8 mmol/L (3.5-5.1); SODIUM 138 mmol/L (136-145)
[2017-12-03 19:32] LABS: ALKALINE PHOSPHATASE 58 U/L (45-117); LDL CHOLESTEROL (DIRECT) 105 mg/dl; TOTAL PROTEIN 7.3 gm/dl (6.4-8.2)
[2017-12-04 07:09] LABS: HEMOGLOBIN A1C 5.8 % (4.5-5.6)
== END | disposition home or self-care (01) ==
LOC: C.LABSPEC 16:31
PROVIDERS: ATTEND Internal Medicine
DX: I10 Essential (primary) hypertension (principal); E78.5 Hyperlipidemia, unspecified; R73.9 Hyperglycemia, unspecified; Z80.42 Family history of malignant neoplasm of prostate

== ENCOUNTER → 2018-01-03 | Outpatient (CLI) | payer BC ==
[2018-01-03 18:44] LABS: INR 1.8 (0.9-1.1)
== END | disposition home or self-care (01) ==
LOC: C.LABSPEC 17:48
PROVIDERS: ATTEND Internal Medicine
DX: Z79.01 Long term (current) use of anticoagulants (principal); Z86.718 Personal history of other venous thrombosis and embolism

== ENCOUNTER → 2018-03-24 | Outpatient (CLI) | payer BC ==
[2018-03-24 13:39] LABS: INR 3.1 (0.9-1.1)
== END | disposition home or self-care (01) ==
LOC: C.LABSPEC 12:56
PROVIDERS: ATTEND Internal Medicine
DX: Z51.81 Encounter for therapeutic drug level monitoring (principal); Z79.01 Long term (current) use of anticoagulants; Z86.718 Personal history of other venous thrombosis and embolism